=== PATIENT | female | born 1985 | race Native Hawaiian/Other Pacific Islander ===

== ENCOUNTER 2016-11-27 21:21 | Inpatient (IN) | payer MEDICAID ==
[2016-11-27] MEDS ORDERED: Iohexol 240 (50 ml) PO ONE (21:44)
[2016-11-27] MEDS ORDERED: Sterile Water 10 ML IV ONE (22:00)
[2016-11-27] MEDS ORDERED: Iohexol 240 (50 ml) ONE (22:00)
--- NOTE | 2016-11-27 22:37 | ED PDOC ---
HPI: Abdomen Time Seen by Provider: 11/27/16 21:34 Chief Complaint (Nursing): Abdominal Pain Chief Complaint (Provider): Abdominal Pain History Per: Patient History/Exam Limitations: no limitations Onset/Duration Of Symptoms: Other (3 months) Outside of [place] travel?: No Current Symptoms Are (Timing): Still Present Associated Symptoms: denies: Fever, Vomiting, Urinary Symptoms Additional Complaint(s): Rafaela Gunn, a 31 year old female, presents to the ED with abdominal pain she has had for the past 3 months. The patient states she was evaluated by Dr. Araya. He reports that she is currently on a H-pylori treatment and also on sucralfate. The patients states the medications have not helped. She reports that the pain is worse in the left flank and epigastric area and says that she feels as though her abdomen is becoming more and more distended. Denies fever, vomiting, urinary symptoms but does have normal stool. Abnormal Vaginal Bleeding: No Past Medical History Reviewed: Historical Data, Nursing Documentation, Vital Signs Vital Signs: Last Vital Signs Temp 98.0 F 11/27/16 21:27 Pulse 66 11/27/16 21:27 Resp 16 11/27/16 21:27 BP 103/63 11/27/16 21:27 Pulse Ox 99 11/27/16 22:50 - Medical History PMH: No Chronic Diseases - Family History Family History: States: Unknown Family Hx - Allergies Allergies/Adverse Reactions: Allergies Allergy/AdvReac Type Severity Reaction Status Date / Time No Known Allergies Allergy Verified 11/27/16 21:27 Review of Systems ROS Statement: Except As Marked, All Systems Reviewed And Found Negative Constitutional: Negative for: Fever Gastrointestinal: Positive for: Abdominal Pain. Negative for: Vomiting Genitourinary Female: Negative for: Dysuria, Frequency, Incontinence, Hematuria Physical Exam - Reviewed Nursing Documentation Reviewed: Yes Vital Signs Reviewed: Yes - Physical Exam Appears: Positive for: Non-toxic, No Acute Distress Head Exam: Positive for: ATRAUMATIC, NORMOCEPHALIC Skin: Positive for: Normal Color, Warm, Dry Eye Exam: Positive for: Normal appearance, EOMI, PERRL ENT: Positive for: Normal ENT Inspection Neck: Positive for: Normal, Painless ROM, Supple Cardiovascular/Chest: Positive for: Regular Rate, Rhythm, Chest Non Tender. Negative for: Tachycardia Respiratory: Positive for: Normal Breath Sounds. Negative for: Wheezing, Respiratory Distress Gastrointestinal/Abdominal: Positive for: Bowel Sounds, Soft, Tenderness (Left flank tenderness; epigastric tenderness;), Distended. Negative for: Guarding, Rebound Back: Positive for: Normal Inspection Extremity: Positive for: Normal ROM. Negative for: Tenderness, Pedal Edema, Deformity, Swelling Neurologic/Psych: Positive for: Alert, Oriented, Gait - Laboratory Results Result Diagrams: 11/27/16 22:40 11/27/16 22:40 - ECG O2 Sat by Pulse Oximetry: 99 (RA) Pulse Ox Interpretation: Normal Medical Decision Making Medical Decision Makin:34 initial Impression: 31 year old female presenting with Abdominal pain NOS Initial Plan: * CT Pelvis PO & IV contrast * CMP * Lipase * Upreg * Udip * CBC * Omnipaque 240 50ml PO * Protonix inJ 40mg IVP * Toradol 15mg IVP * Urine Culture * Urinalysis * Reevaluation IMPRESSION: No acute solid visceral abnormality; suboptimal positioning of IUD in the lower uterine segment and cervix; enteritis; nonobstructing small bowel intussusception in the left upper quadrant; constipation Additional findings as described above 130AM: Pt. seen and evaluated by operating room surgical technologist. Recommends medical admission with Joel as surgical consult. Scribe Attestation Documented by Deana Donato acting as a scribe for Sincere Perry MD. Provider Attestation All medical record entries made by the Scribe were at my direction and personally dictated by me. I have reviewed the chart and agree that the record accurately reflects my personal performance of the history, physical exam, medical decision making, and the department course for this patient. I have also personally directed, reviewed, and agree with the discharge instructions and disposition Disposition - Clinical Impression Clinical Impression: Intussusception - Patient ED Disposition Is Patient to be Admitted: No - Disposition Disposition Time: 01:30 Condition: STABLE
[2016-11-27 22:50] LABS: BASO % 0.5 % (0.0-2.0); EOS # 0.2 K/uL (0.0-0.7); EOS % 3.4 % (0.0-4.0); HEMATOCRIT 36.4 % (34.0-47.0); LYMPH # 2.3 K/uL (1.0-4.3); LYMPH % 44.4 % (20.0-40.0); MEAN CELL VOLUME 78.3 fl (81.0-99.0); MEAN CORPUSCULAR HEMOGLOBIN 24.5 pg (27.0-31.0); MEAN CORPUSCULAR HGB CONC 31.3 g/dL (33.0-37.0); MEAN PLATELET VOLUME 8.4 fl (7.2-11.7); MONO # 0.4 K/uL (0.0-0.8); MONO % 8.2 % (0.0-10.0); NEUT # 2.2 K/uL (1.8-7.0); NEUT % 43.5 % (50.0-75.0); NRBC % 0.1 % (0.0-0.0); WHITE BLOOD COUNT 5.1 K/uL (4.8-10.8)
[2016-11-27 22:53] LABS: RBC URINE 1 /hpf (0-3); URINE BILIRUBIN NEGATIVE (NEGATIVE); URINE BLOOD MODERATE (NEGATIVE); URINE COLOR YELLOW (YELLOW); URINE GLUCOSE (UA) NEG (Normal); URINE KETONE NEGATIVE (NEGATIVE); URINE LEUKOCYTE ESTERASE NEG Leu/uL (Negative); URINE PROTEIN NEGATIVE (NEGATIVE); URINE UROBILINOGEN 0.2-1.0 mg/dL (0.2-1.0); WBC URINE 2 /hpf (0-5)
[2016-11-27 23:00] LABS: ALB/GLOB RATIO 1.4 (1.0-2.1); ALKALINE PHOSPHATASE 37 U/L (38-126); ALT/SGPT 29 U/L (9-52); AST/SGOT 22 U/L (14-36); BILIRUBIN,TOTAL 0.1 mg/dl (0.2-1.3); BLOOD UREA NITROGEN 11 mg/dl (7-17); CALCIUM 9.1 mg/dL (8.4-10.2); CARBON DIOXIDE 26 mmol/L (22-30); CHLORIDE 105 mmol/L (98-107); GFR AFRICAN-AMERICAN > 60; GLUCOSE,RANDOM 96 mg/dL (65-105); LIPASE 92 U/L (23-300); POTASSIUM 3.6 MMOL/L (3.6-5.0); SODIUM 139 mmol/l (132-148); TOTAL PROTEIN 7.4 G/DL (6.3-8.2)
[2016-11-27] MEDS ORDERED: Iohexol 300 100 ML IJ ONE (23:38)
[2016-11-27] MEDS ORDERED: Sodium Chloride 0.9% 50 ML IV ONE (23:39)
--- NOTE | 2016-11-28 00:26 | CT ---
EXAM: CT Abdomen and Pelvis With Intravenous Contrast CLINICAL HISTORY: 31 years old, female; Pain; Abdominal pain; Localized; Left upper quadrant (luq); Prior surgery; Surgery date: 6+ months; Surgery type: ; Additional info: Diffuse abd pain, distension TECHNIQUE: Axial computed tomography images of the abdomen and pelvis with intravenous contrast. This CT exam was performed using one or more of the following dose reduction techniques: automated exposure control, adjustment of the mA and/or kV according to patient size, and/or use of iterative reconstruction technique. Coronal and sagittal reformatted images were created and reviewed. CONTRAST: 95 mL of administered intravenously. EXAM DATE/TIME: 11/27/2016 9:45 PM COMPARISON: There are no prior studies for comparison. FINDINGS: Lower thorax: Heart size is normal. There is minimal atelectasis/scarring at the lung bases. ABDOMEN: Liver: There is fatty infiltration of the liver. Gallbladder and bile ducts: unremarkable Pancreas: unremarkable Spleen: unremarkable Adrenals: unremarkable Kidneys and ureters: unremarkable Stomach and bowel: Stomach is distended with ingested material, contrast and air. Rotation is normal. Proximal and mid small bowel is mildly distended . There is mild fold thickening. There is a nonobstructing small bowel intussusception in the left upper quadrant. There is mild mid small bowel wall thickening. There is fecalization distal and terminal ileum. Appendix is unremarkable. There is a moderately large amount of stool in the right colon. Appendix: See stomach and bowel PELVIS: Bladder: unremarkable Reproductive: There is an IUD in the lower uterine segment and cervix. There is mild prominence of the adnexa. ABDOMEN and PELVIS: Intraperitoneal space: There is trace free fluid. There is no free air. Bones/joints: There are no acute osseous abnormalities Soft tissues: There is a small fat containing umbilical hernia. Vasculature: Vascular structures are unremarkable. Lymph nodes: There is shotty mesenteric adenopathy IMPRESSION: No acute solid visceral abnormality; suboptimal positioning of IUD in the lower uterine segment and cervix; enteritis; nonobstructing small bowel intussusception in the left upper quadrant; constipation Additional findings as described above.
[2016-11-28] MEDS ORDERED: Sodium Chloride 0.9% 1,000 ML IV STA (01:50)
--- NOTE | 2016-11-28 02:16 | CP.PCM.CON ---
History of Present Illness - History of Present Illness History of Present Illness: Surgery Consult: Dr. Chen Pt is a 31F with no significant PMHx who presents to [facility] with complaints of intermittent LUQ/left upper back abdominal pain x 3-4 months. Pt states she has been having on and off abdominal pain for the past few months which she describes as a twisting sensation that lasts a few minutes and resolves. She admits to several visits to [facility] for this pain for which she was sent home from the ER and was told to f/u with GI. She did follow up with GI, had an EGD in September and was started on triple therapy for H-pylori. Pt states her symptoms have not improved and she does not correlate her pain with food intake. She states her pain sometimes gets worse with deep breathing or certain positions. Denies F/C, N/V. She does admit to a hx of constipation for which she takes a laxative PRN. In the ER, pt had a CT abdomen/pelvis which shows non-obstructing intussusception in the LUQ. Surgery consulted to evaluate. Currently, pt is resting comfortably in bed. States her pain has improved slightly after getting the pain meds. Pt states her last BM was yesterday and it was normal. Admits to flatus. Denies other complaints at this time. PMHx: denies PSHx: x 3, tonsillectomy SocialHx: denies smoking, EtOH/drugs NKDA Review of Systems - Review of Systems All systems: reviewed and no additional remarkable complaints except (as per HPI ) Past Patient History - Past Medical History & Family History Past Medical History?: No Past Family History: Reviewed and not pertinent - Past Social History Smoking Status: Never Smoked - GASTROINTESTINAL Hx Gastritis: Yes - PSYCHIATRIC Hx Substance Use: No - SURGICAL HISTORY Hx Surgeries: Yes Hx Section: Yes Hx Eye Surgery: Yes - ANESTHESIA Hx Anesthesia: Yes Hx Anesthesia Reactions: No Meds Allergies/Adverse Reactions: Allergies Allergy/AdvReac Type Severity Reaction Status Date / Time No Known Allergies Allergy Verified 11/27/16 21:27 - Medications Medications: Current Medications Sodium Chloride (Sodium Chloride 0.9%) 1,000 mls @ 150 mls/hr IV .Q6H40M STA Stop: 11/28/16 08:29 Ketorolac Tromethamine (Toradol) 15 mg IVP Q6 PRN PRN Reason: Pain, moderate (4-7) Physical Exam - Constitutional Appears: Well, No Acute Distress - Head Exam Head Exam: ATRAUMATIC, NORMOCEPHALIC - ENT Exam ENT Exam: Mucous Membranes Moist - Respiratory Exam Respiratory Exam: NORMAL BREATHING PATTERN - Cardiovascular Exam Cardiovascular Exam: RRR - GI/Abdominal Exam GI & Abdominal Exam: Normal Bowel Sounds, Soft, Tenderness (LUQ ). absent: Distended, Guarding, Rebound - Rectal Exam Rectal Exam: Deferred - Extremities Exam Extremities exam: Negative for: tenderness - Neurological Exam Neurological exam: Alert, Oriented x3 - Skin Skin Exam: Dry, Intact, Warm Results - Vital Signs Recent Vital Signs: Last Vital Signs Temp 98.0 F 11/27/16 21:27 Pulse 66 11/27/16 21:27 Resp 16 11/27/16 21:27 BP 103/63 11/27/16 21:27 Pulse Ox 99 11/28/16 01:53 - Labs Result Diagrams: 11/27/16 22:40 11/27/16 22:40 Labs: Laboratory Results - last 24 hr 11/27/16 11/27/16 11/27/16 22:40 22:40 22:40 WBC 5.1 RBC 4.65 Hgb 11.4 L Hct 36.4 MCV 78.3 L MCH 24.5 L MCHC 31.3 L RDW 14.0 Plt Count 246 MPV 8.4 Neut % (Auto) 43.5 L Lymph % (Auto) 44.4 H [place] % (Auto) 8.2 Eos % (Auto) 3.4 Baso % (Auto) 0.5 Neut # 2.2 Lymph # 2.3 [place] # 0.4 Eos # 0.2 Baso # 0.0 Sodium 139 Potassium 3.6 Chloride 105 Carbon Dioxide 26 Anion Gap 12 BUN 11 Creatinine 0.6 L Est GFR ( Amer) > 60 Est GFR (Non-Af Amer) > 60 Random Glucose 96 Calcium 9.1 Total Bilirubin 0.1 L AST 22 ALT 29 Alkaline Phosphatase 37 L Total Protein 7.4 Albumin 4.3 Globulin 3.1 Albumin/Globulin Ratio 1.4 Lipase 92 Urine Color Yellow Urine Clarity Clear Urine pH 8.0 Ur Specific [place] 1.012 Urine Protein Negative Urine Glucose (UA) Neg Urine Ketones Negative Urine Blood Moderate Urine Nitrate Negative Urine Bilirubin Negative Urine Urobilinogen 0.2-1.0 Ur Leukocyte Esterase Neg Urine RBC (Auto) 1 Urine Microscopic WBC 2 Ur Squamous Epith Cells 2 - Imaging and Cardiology CT scan - abdomen Status: Image reviewed by me, Report reviewed by me Assessment & Plan - Assessment and Plan (Free Text) Assessment: 31F with non-obstructing intussusception as seen on CT Plan: - Keep NPO - IVF, pain management - serial abdominal exams - will d/w Dr. April Malik, PGY-2 Surgery
[2016-11-28 09:01] LABS: BASO % 0.8 % (0.0-2.0); EOS # 0.2 K/uL (0.0-0.7); EOS % 4.2 % (0.0-4.0); HEMATOCRIT 33.1 % (34.0-47.0); LYMPH # 1.9 K/uL (1.0-4.3); LYMPH % 46.3 % (20.0-40.0); MEAN CELL VOLUME 78.1 fl (81.0-99.0); MEAN CORPUSCULAR HEMOGLOBIN 25.3 pg (27.0-31.0); MEAN CORPUSCULAR HGB CONC 32.4 g/dL (33.0-37.0); MEAN PLATELET VOLUME 8.3 fl (7.2-11.7); MONO # 0.3 K/uL (0.0-0.8); MONO % 7.3 % (0.0-10.0); NEUT # 1.7 K/uL (1.8-7.0); NEUT % 41.4 % (50.0-75.0); NRBC % 0.1 % (0.0-0.0); WHITE BLOOD COUNT 4.2 K/uL (4.8-10.8)
[2016-11-28 09:19] LABS: BLOOD UREA NITROGEN 9 mg/dl (7-17); CALCIUM 8.3 mg/dL (8.4-10.2); CARBON DIOXIDE 26 mmol/L (22-30); CHLORIDE 106 mmol/L (98-107); GFR AFRICAN-AMERICAN > 60; GLUCOSE,RANDOM 90 mg/dL (65-105); POTASSIUM 3.5 MMOL/L (3.6-5.0); SODIUM 140 mmol/l (132-148)
[2016-11-28] MEDS ORDERED: Potassium Chloride 20 mEq ER Tab PO ONE (10:40)
[2016-11-28] MEDS: Pantoprazole 40 mg EC Tab PO SCH (11:40)
--- NOTE | 2016-11-28 12:56 | RAD ---
HISTORY: left lower chest pain COMPARISON: None available. TECHNIQUE: Chest PA and lateral FINDINGS: LUNGS: No focal consolidation. Please note that chest x-ray has limited sensitivity for the detection of pulmonary masses. PLEURA: No significant pleural effusion identified. No definite pneumothorax . CARDIOVASCULAR: The cardiomediastinal silhouette appears within normal limits of size. OSSEOUS STRUCTURES: No acute osseous abnormality identified. VISUALIZED UPPER ABDOMEN: Unremarkable. OTHER FINDINGS: None. IMPRESSION: No focal consolidation, significant pleural effusion, or definite pneumothorax identified.
--- NOTE | 2016-11-28 13:55 | CP.PCM.HP ---
<Daljit Clarke - Last Filed: 11/28/16 13:49> History of Present Illness - History of Present Illness History of Present Illness: 31 year old female with no significant PMHx presented to ED with intermittent LUQ abdominal pain x 3 months. Described as a twisting sensation that lasts a few minutes (up to 5 mins) and resolves, not correlated with food. Previous similar episodes evaluated at [facility] [place], discharged from ED to follow up with GI. Patient followed up with GI, had an EGD in September and was started on triple therapy for H-pylori though no improvement of symptoms. Patient states pain sometimes gets worse with deep breathing or certain positions. Denies fever, chills, nausea, vomiting, melena, brbpr, chest pain, or SOB. Patient had a CT abdomen/pelvis which showed non-obstructing intussusception in the LUQ. Patient was seen and evaluated with attending. Patient states pain improved though still present when she takes deep breaths. Denies other complaints at this time. No acute events overnight. Surgery evaluated patient. PMHx: denies Allergies: NKDA Meds: as per chart PSHx: x 3, tonsillectomy SocialHx: denies smoking, EtOH, drugs Present on Admission - Present on Admission Any Indicators Present on Admission: No Review of Systems - Review of Systems All systems: reviewed and no additional remarkable complaints except (mentioned in HPI) Past Patient History - Past Medical History & Family History Past Medical History?: No - Past Social History Smoking Status: Never Smoked - CARDIAC Hx Cardiac Disorders: No - PULMONARY Hx Respiratory Disorders: No - NEUROLOGICAL Hx Neurological Disorder: No - HEENT Hx HEENT Problems: No - RENAL Hx Chronic Kidney Disease: No - ENDOCRINE/METABOLIC Hx Endocrine Disorders: No - HEMATOLOGICAL/ONCOLOGICAL Hx AIDS: No Hx Human Immunodeficiency Virus (HIV): No - INTEGUMENTARY Hx Dermatological Problems: No - MUSCULOSKELETAL/RHEUMATOLOGICAL Hx Falls: No - GASTROINTESTINAL Hx Gastritis: Yes - GENITOURINARY/GYNECOLOGICAL Hx Genitourinary Disorders: No - PSYCHIATRIC Hx Psychophysiologic Disorder: No Hx Substance Use: No - SURGICAL HISTORY Hx Surgeries: Yes Hx Section: Yes (x 3) Hx Eye Surgery: Yes (left eye) - ANESTHESIA Hx Anesthesia: Yes Hx Anesthesia Reactions: No Meds Allergies/Adverse Reactions: Allergies Allergy/AdvReac Type Severity Reaction Status Date / Time No Known Allergies Allergy Verified 11/27/16 21:27 Physical Exam - Constitutional Appears: Well, Non-toxic, No Acute Distress - Head Exam Head Exam: ATRAUMATIC, NORMAL INSPECTION, NORMOCEPHALIC - Eye Exam Eye Exam: Normal appearance - Neck Exam Neck exam: Positive for: Normal Inspection - Respiratory Exam Respiratory Exam: Clear to Auscultation Bilateral, NORMAL BREATHING PATTERN - Cardiovascular Exam Cardiovascular Exam: REGULAR RHYTHM, RRR, +S1, +S2 - GI/Abdominal Exam GI & Abdominal Exam: Normal Bowel Sounds, Soft, Tenderness (mild LUQ/false ribs) - Extremities Exam Extremities exam: Positive for: normal inspection - Neurological Exam Neurological exam: Alert, Oriented x3 - Psychiatric Exam Psychiatric exam: Normal Affect, Normal Mood - Skin Skin Exam: Dry, Intact, Normal Color, Warm Results - Vital Signs Recent Vital Signs: Last Vital Signs Temp 98.3 F 11/28/16 09:00 Pulse 90 11/28/16 09:00 Resp 18 11/28/16 09:00 BP 98/65 L 11/28/16 09:00 Pulse Ox 100 11/28/16 09:00 - Labs Result Diagrams: 11/28/16 08:46 11/28/16 08:46 Labs: Laboratory Results - last 24 hr 11/28/16 11/28/16 08:46 08:46 WBC 4.2 L RBC 4.25 Hgb 10.7 L Hct 33.1 L MCV 78.1 L MCH 25.3 L MCHC 32.4 L RDW 14.0 Plt Count 223 MPV 8.3 Neut % (Auto) 41.4 L Lymph % (Auto) 46.3 H [place] % (Auto) 7.3 Eos % (Auto) 4.2 H Baso % (Auto) 0.8 Neut # 1.7 L Lymph # 1.9 [place] # 0.3 Eos # 0.2 Baso # 0.0 Sodium 140 Potassium 3.5 L Chloride 106 Carbon Dioxide 26 Anion Gap 12 BUN 9 Creatinine 0.6 L Est GFR ( Amer) > 60 Est GFR (Non-Af Amer) > 60 Random Glucose 90 Calcium 8.3 L Assessment & Plan (1) Intussusception Assessment and Plan: Surgery on board, appreciate recommendations Will obtain CXR to evaluate ribs NPO IVF Pain management Status: Acute <Chester,Andrea K - Last Filed: 11/30/16 07:31> Present on Admission - Present on Admission Any Indicators Present on Admission: No Results - Vital Signs Recent Vital Signs: Last Vital Signs Temp 98.5 F 11/30/16 07:28 Pulse 57 L 11/30/16 07:28 Resp 18 11/30/16 07:28 BP 111/74 11/30/16 07:28 Pulse Ox 99 11/30/16 07:28 - Labs Result Diagrams: 11/29/16 06:05 11/29/16 06:05
[2016-11-28] MEDS: Sodium Chloride 0.9% 1,000 ML IV SCH ×3 (16:33→23:22)
[2016-11-29] MEDS: Sodium Chloride 0.9% 1,000 ML IV SCH ×3 (04:10→13:49)
[2016-11-29 06:56] LABS: BASO % 0.5 % (0.0-2.0); EOS # 0.1 K/uL (0.0-0.7); EOS % 4.1 % (0.0-4.0); HEMATOCRIT 31.3 % (34.0-47.0); LYMPH # 1.8 K/uL (1.0-4.3); LYMPH % 51.4 % (20.0-40.0); MEAN CELL VOLUME 77.4 fl (81.0-99.0); MEAN CORPUSCULAR HEMOGLOBIN 25.4 pg (27.0-31.0); MEAN CORPUSCULAR HGB CONC 32.9 g/dL (33.0-37.0); MEAN PLATELET VOLUME 8.5 fl (7.2-11.7); MONO # 0.3 K/uL (0.0-0.8); MONO % 7.2 % (0.0-10.0); NEUT # 1.3 K/uL (1.8-7.0); NEUT % 36.8 % (50.0-75.0); NRBC % 0.3 % (0.0-0.0); RED CELL DISTRIBUTION WIDTH 13.8 % (11.5-14.5); WHITE BLOOD COUNT 3.5 K/uL (4.8-10.8)
[2016-11-29 07:03] LABS: ALB/GLOB RATIO 1.2 (1.0-2.1); ALKALINE PHOSPHATASE 35 U/L (38-126); ALT/SGPT 32 U/L (9-52); AST/SGOT 20 U/L (14-36); BILIRUBIN,TOTAL 0.2 mg/dl (0.2-1.3); BLOOD UREA NITROGEN 6 mg/dl (7-17); CALCIUM 7.9 mg/dL (8.4-10.2); CARBON DIOXIDE 24 mmol/L (22-30); CHLORIDE 108 mmol/L (98-107); GFR AFRICAN-AMERICAN > 60; GLUCOSE,RANDOM 82 mg/dL (65-105); POTASSIUM 3.7 MMOL/L (3.6-5.0); SODIUM 138 mmol/l (132-148); TOTAL PROTEIN 6.2 G/DL (6.3-8.2)
[2016-11-29] MEDS: Pantoprazole 40 mg EC Tab PO SCH (08:44)
--- NOTE | 2016-11-29 10:12 | RAD ---
HISTORY: Abdominal pain COMPARISON: Comparison made with CT scan abdomen and pelvis 11/28/2016 FINDINGS: BOWEL: Oral contrast material is seen opacifying the colon precluding complete obstruction. BONES: Osseous structures grossly intact. OTHER FINDINGS: In situ Copper-T IUD. IMPRESSION: No evidence of complete obstruction with oral contrast material opacifying the colon.
--- NOTE | 2016-11-29 10:57 | CP.PCM.PN ---
Subjective - Date & Time of Evaluation Date of Evaluation: 11/29/16 Time of Evaluation: 07:54 - Subjective Subjective: Patient seen and evaluated at bedside with attending. No acute events overnight. Left abdominal pain is still present, with relief with medications. No fever/chills. Surgery following. For Small Bowel Series today. No other complaints at this time. Objective - Vital Signs/Intake and Output Vital Signs (last 24 hours): Temp Pulse Resp BP Pulse Ox 98.1 F 64 18 110/76 100 11/29/16 08:22 11/29/16 08:22 11/29/16 08:22 11/29/16 08:22 11/29/16 08:22 - Medications Medications: Current Medications Sodium Chloride (Sodium Chloride 0.9%) 1,000 mls @ 150 mls/hr IV .Q6H40M [facility] Stop: 11/29/16 14:41 Last Admin: 11/29/16 04:56 Dose: 150 mls/hr Ketorolac Tromethamine (Toradol) 15 mg IVP Q6 PRN PRN Reason: Pain, moderate (4-7) Last Admin: 11/29/16 04:53 Dose: 15 mg Ondansetron HCl (Zofran Inj) 4 mg IVP Q6 PRN PRN Reason: Nausea/Vomiting Pantoprazole Sodium (Protonix Ec Tab) 40 mg PO DAILY [facility] Last Admin: 11/29/16 08:44 Dose: 40 mg - Labs Labs: 11/29/16 06:05 11/29/16 06:05 - Constitutional Appears: Well, Non-toxic, No Acute Distress - Head Exam Head Exam: ATRAUMATIC, NORMAL INSPECTION, NORMOCEPHALIC - Eye Exam Eye Exam: Normal appearance - Respiratory Exam Respiratory Exam: Clear to Ausculation Bilateral, NORMAL BREATHING PATTERN - Cardiovascular Exam Cardiovascular Exam: REGULAR RHYTHM, +S1, +S2. absent: Murmur - GI/Abdominal Exam GI & Abdominal Exam: Soft, Tenderness (luq), Normal Bowel Sounds - Extremities Exam Extremities Exam: Normal Inspection - Neurological Exam Neurological Exam: Alert, Awake, Oriented x3 - Psychiatric Exam Psychiatric exam: Normal Affect, Normal Mood - Skin Skin Exam: Dry, Intact, Normal Color, Warm Assessment and Plan (1) Intussusception Assessment & Plan: Labs/imaging reviewed Surgery on board, appreciate recommendations Small bowel series today advance diet as tolerated Pain management PRN Status: Acute
--- NOTE | 2016-11-29 11:07 | CP.PCM.PN ---
Subjective - Date & Time of Evaluation Date of Evaluation: 11/29/16 Time of Evaluation: 09:00 - Subjective Subjective: General Surgery progress note for Dr. Ceballos Pt s/e at bedside this AM. NAEO. Patient states that she still has mild pain in the LUQ but that she had a bowel movement this AM which was hard but non-bloody. Objective - Vital Signs/Intake and Output Vital Signs (last 24 hours): Temp Pulse Resp BP Pulse Ox 98.1 F 64 18 110/76 100 11/29/16 08:22 11/29/16 08:22 11/29/16 08:22 11/29/16 08:22 11/29/16 08:22 - Medications Medications: Current Medications Sodium Chloride (Sodium Chloride 0.9%) 1,000 mls @ 150 mls/hr IV .Q6H40M [facility] Stop: 11/29/16 14:41 Last Admin: 11/29/16 04:56 Dose: 150 mls/hr Ketorolac Tromethamine (Toradol) 15 mg IVP Q6 PRN PRN Reason: Pain, moderate (4-7) Last Admin: 11/29/16 04:53 Dose: 15 mg Ondansetron HCl (Zofran Inj) 4 mg IVP Q6 PRN PRN Reason: Nausea/Vomiting Pantoprazole Sodium (Protonix Ec Tab) 40 mg PO DAILY [facility] Last Admin: 11/29/16 08:44 Dose: 40 mg - Labs Labs: 11/29/16 06:05 11/29/16 06:05 - Constitutional Appears: Well, Non-toxic, No Acute Distress - Head Exam Head Exam: ATRAUMATIC, NORMOCEPHALIC - Eye Exam Eye Exam: Normal appearance. absent: Conjunctival injection, Scleral icterus - ENT Exam ENT Exam: Mucous Membranes Moist, Normal Oropharynx - Respiratory Exam Respiratory Exam: NORMAL BREATHING PATTERN. absent: Accessory Muscle Use, Respiratory Distress - GI/Abdominal Exam GI & Abdominal Exam: Soft, Tenderness (mild tenderness in the LUQ). absent: Distended - Extremities Exam Extremities Exam: absent: Calf Tenderness, Pedal Edema, Tenderness - Neurological Exam Neurological Exam: Alert, Awake, Oriented x3 - Psychiatric Exam Psychiatric exam: Normal Affect, Normal Mood - Skin Skin Exam: Dry, Intact, Normal Color, Warm Assessment and Plan - Assessment and Plan (Free Text) Assessment: 31F with chronic abdominal pain and non-obstructing intussusception as seen on CT Patient passed stool this AM Unable to perform obstructive small bowel series d/t contrast from previous CT scan yesterday--which is in the colon No leukocytosis Plan: - No plans for surgical intervention at this time. Patient is not in acute distress, abdominal exam is benign, and bowel is not obstructed. An outpatient small bowel series should be performed with follow up with Dr. Ceballos in her office for further evaluation/therapy planning - Regular diet - Patient is clear for discharge from a surgical standpoint with outpatient small bowel series and follow up with Dr. Ceballos - We will continue to follow patient until discharge Discussed with Dr. Tucker Asencio, PGY1
--- NOTE | 2016-11-29 13:56 | CP.PCM.CON ---
History of Present Illness - History of Present Illness History of Present Illness: GI consult requested by Dr Chester- This is a pt is a 31F with no significant PMHx who presents to [facility] with complaints of intermittent LUQ/left upper back abdominal pain x 3-4 months. Pt states she has been having on and off abdominal pain for the past few months which she describes as a twisting sensation that lasts a few minutes and resolves. She admits to several visits to [facility] [place] for this pain for which she was sent home from the ER and was told to f/u with GI. She did follow up with GI, had an EGD in September and was started on triple therapy for H-pylori. Pt states her symptoms have not improved and she does not correlate her pain with food intake. She states her pain sometimes gets worse with deep breathing or certain positions. Denies F/C, N/V. She does admit to a hx of constipation for which she takes a laxative PRN. In the ER, pt had a CT abdomen/pelvis which shows non-obstructing intussusception in the LUQ. Surgery consulted to evaluate. Currently, pt is resting comfortably in bed. States her pain has improved slightly after getting the pain meds. She admits to passing flatus and bowels. Denies other complaints at this time. Review of Systems - Review of Systems Review of Systems: 12 point ROS unremarkable except that documented on HPI Past Patient History - Past Medical History & Family History Past Medical History?: No - Past Social History Smoking Status: Never Smoked - CARDIAC Hx Cardiac Disorders: No - PULMONARY Hx Respiratory Disorders: No - NEUROLOGICAL Hx Neurological Disorder: No - HEENT Hx HEENT Problems: No - RENAL Hx Chronic Kidney Disease: No - ENDOCRINE/METABOLIC Hx Endocrine Disorders: No - HEMATOLOGICAL/ONCOLOGICAL Hx AIDS: No Hx Human Immunodeficiency Virus (HIV): No - INTEGUMENTARY Hx Dermatological Problems: No - MUSCULOSKELETAL/RHEUMATOLOGICAL Hx Falls: No - GASTROINTESTINAL Hx Gastritis: Yes - GENITOURINARY/GYNECOLOGICAL Hx Genitourinary Disorders: No - PSYCHIATRIC Hx Psychophysiologic Disorder: No Hx Substance Use: No - SURGICAL HISTORY Hx Surgeries: Yes Hx Section: Yes (x 3) Hx Eye Surgery: Yes (left eye) - ANESTHESIA Hx Anesthesia: Yes Hx Anesthesia Reactions: No Meds Allergies/Adverse Reactions: Allergies Allergy/AdvReac Type Severity Reaction Status Date / Time No Known Allergies Allergy Verified 11/27/16 21:27 - Medications Medications: Current Medications Sodium Chloride (Sodium Chloride 0.9%) 1,000 mls @ 150 mls/hr IV .Q6H40M [facility] Stop: 11/29/16 14:41 Last Admin: 11/29/16 04:56 Dose: 150 mls/hr Ketorolac Tromethamine (Toradol) 15 mg IVP Q6 PRN PRN Reason: Pain, moderate (4-7) Last Admin: 11/29/16 11:25 Dose: 15 mg Ondansetron HCl (Zofran Inj) 4 mg IVP Q6 PRN PRN Reason: Nausea/Vomiting Last Admin: 11/29/16 11:21 Dose: 4 mg Pantoprazole Sodium (Protonix Ec Tab) 40 mg PO DAILY [facility] Last Admin: 11/29/16 08:44 Dose: 40 mg Physical Exam - Constitutional Appears: Well - Head Exam Head Exam: ATRAUMATIC, NORMAL INSPECTION, NORMOCEPHALIC - Eye Exam Eye Exam: EOMI, Normal appearance, PERRL - ENT Exam ENT Exam: Mucous Membranes Dry - Neck Exam Neck exam: Positive for: Normal Inspection - Respiratory Exam Respiratory Exam: Clear to Auscultation Bilateral, NORMAL BREATHING PATTERN - Cardiovascular Exam Cardiovascular Exam: REGULAR RHYTHM, RRR, +S1, +S2 - GI/Abdominal Exam GI & Abdominal Exam: Distended, Normal Bowel Sounds, Soft. absent: Tenderness Additional comments: No guarding or rigidity - Extremities Exam Extremities exam: Positive for: normal inspection - Neurological Exam Neurological exam: Alert, CN II-XII Intact, Normal Gait, Oriented x3, Reflexes Normal - Psychiatric Exam Psychiatric exam: Normal Affect, Normal Mood - Skin Skin Exam: Dry, Intact, Normal Color, Warm Results - Vital Signs Recent Vital Signs: Last Vital Signs Temp 98.1 F 11/29/16 08:22 Pulse 66 11/29/16 11:36 Resp 20 11/29/16 11:36 BP 141/86 11/29/16 11:36 Pulse Ox 100 11/29/16 11:36 - Labs Result Diagrams: 11/29/16 06:05 11/29/16 06:05 Labs: Laboratory Results - last 24 hr 11/29/16 11/29/16 06:05 06:05 WBC 3.5 L RBC 4.05 Hgb 10.3 L Hct 31.3 L MCV 77.4 L MCH 25.4 L MCHC 32.9 L RDW 13.8 Plt Count 198 MPV 8.5 Neut % (Auto) 36.8 L Lymph % (Auto) 51.4 H [place] % (Auto) 7.2 Eos % (Auto) 4.1 H Baso % (Auto) 0.5 Neut # 1.3 L Lymph # 1.8 [place] # 0.3 Eos # 0.1 Baso # 0.0 Sodium 138 Potassium 3.7 Chloride 108 H Carbon Dioxide 24 Anion Gap 10 BUN 6 L Creatinine 0.6 L Est GFR ( Amer) > 60 Est GFR (Non-Af Amer) > 60 Random Glucose 82 Calcium 7.9 L Total Bilirubin 0.2 AST 20 ALT 32 Alkaline Phosphatase 35 L Total Protein 6.2 L Albumin 3.4 L D Globulin 2.8 Albumin/Globulin Ratio 1.2 Assessment & Plan - Assessment and Plan (Free Text) Assessment: 31 yr old F with previous admission for left lower abdominal pain shown to have non obstructive intussusception without obstructive symptoms. Surgical consult appreciated. EGD done two months ago revealed H pylori which was treated. Patient had one bout of vomiting today after eating soup. Diet as tolerated IVF Supplement electrolytes Upper Gi series Rest of plan as per surgery
[2016-11-30 01:12] VITALS: O2SAT 99
[2016-11-30 07:29] VITALS: BP 111/74; PULSE 57; RESP 18; TEMP 98.5
--- NOTE | 2016-11-30 08:22 | PN ---
DATE: 11/30/2016 SUBJECTIVE: The patient seen and examined. Interim events noted. Consults noted and appreciated. Gastroenterology and surgical followup and intervention noted and appreciated. The patient remains o n the regular medical floor, still complains of stomach discomfort, but is improving slowly. No ches t pain or shortness of breath. PHYSICAL EXAMINATION: GENERAL: The patient is in no acute distress. VITAL SIGNS: Stable. Temperature 98.3, pulse 76, respiration 20, blood pressure 101/65. HEART: S1, S2 normal, regular. LUNGS: Good bilateral air exchange. ABDOMEN: Soft, nontender. No organomegaly, no fluid. Bowel sounds are plus. The patient has some sensitivity in the left upper quadrant, but it is nothing acute. No guarding, no rigidity, no reboun d. Bowel sounds are plus and normal. EXTREMITIES: No edema, no calf swelling, no tenderness, no acute ischemia. CENTRAL NERVOUS SYSTEM: Essentially unchanged. DIAGNOSTIC DATA: Available diagnostic data reviewed. WBC 3.5, hemoglobin 10.3, hematocrit 31.8, trinidad telets 198. Sodium 138, potassium 3.7, chloride 103, bicarbonate 24, BUN 6, creatinine 0.6. SMA-12 is unremarkable, small bowel series is not done, did retain contrast from CT scan. Need for an d follow up as outpatient with consultants and primary care explained to patient. Patient understood the need for it. PLAN: We will discharge the patient home today. The patient will be followed up by consultants and primary care physician. Discharge plan discussed with patient. Andrea Chester MD cc: [id number] TT: 11/30/2016 08:21:48 Confirmation # [id number] Dictation # [id number] melly
--- NOTE | 2016-11-30 08:35 | OP ---
PROCEDURE DATE: 11/30/2016 SUBJECTIVE: This is a 31-year-old female without significant past medical history, was having abdomi nal pain on and off for which she had workup as outpatient and multiple Emergency Room visits, but didi reyes continued to have pain which got worse and was longest duration so far, so patient was brought to Emergency Room. CT scan showed possible nonobstructive small intestine intussusception, so edmund husain was admitted. Surgical consult and gastroenterological consult was done. Suggestions were followsamuel d. Small bowel series was attempted but due to retained contrast was not able to be completed. The patient was medically stable although had persistent left upper quadrant sensitivity. The patient wa s able to tolerate diet, was moving her bowels, and there was no acute problem. So, patient is being discharged today and patient will be followed up with medical physicians and solutions delivery consultant, and will ramírez ve small bowel series as outpatient, among other workup that is pending. Andrea Chester MD cc: [id number] TT: 11/30/2016 08:34:58 melly
--- NOTE | 2016-11-30 08:59 | CP.PCM.PN ---
Subjective - Date & Time of Evaluation Date of Evaluation: 11/30/16 Time of Evaluation: 08:00 - Subjective Subjective: patient seen at bedside. No overnight events. tolerated full regular diet. Denies nausea, vomiting, constipation or abdominal pain. Objective - Vital Signs/Intake and Output Vital Signs (last 24 hours): Temp Pulse Resp BP Pulse Ox 98.5 F 57 L 18 111/74 99 11/30/16 07:28 11/30/16 07:28 11/30/16 07:28 11/30/16 07:28 11/30/16 07:28 - Medications Medications: Current Medications Ketorolac Tromethamine (Toradol) 15 mg IVP Q6 PRN PRN Reason: Pain, moderate (4-7) Last Admin: 11/30/16 04:03 Dose: 15 mg Ondansetron HCl (Zofran Inj) 4 mg IVP Q6 PRN PRN Reason: Nausea/Vomiting Last Admin: 11/29/16 11:21 Dose: 4 mg Pantoprazole Sodium (Protonix Ec Tab) 40 mg PO DAILY [facility] Last Admin: 11/29/16 08:44 Dose: 40 mg - Labs Labs: 11/29/16 06:05 11/29/16 06:05 - Constitutional Appears: Well - Head Exam Head Exam: ATRAUMATIC, NORMAL INSPECTION, NORMOCEPHALIC - Eye Exam Eye Exam: EOMI, Normal appearance, PERRL - Respiratory Exam Respiratory Exam: Clear to Ausculation Bilateral, NORMAL BREATHING PATTERN - Cardiovascular Exam Cardiovascular Exam: REGULAR RHYTHM, +S1, +S2. absent: Murmur - GI/Abdominal Exam GI & Abdominal Exam: Distended, Soft, Normal Bowel Sounds. absent: Tenderness Additional comments: Normal bowel sounds - Neurological Exam Neurological Exam: Alert, Awake, CN II-XII Intact, Normal Gait, Oriented x3 - Psychiatric Exam Psychiatric exam: Normal Affect, Normal Mood - Skin Skin Exam: Dry, Intact, Normal Color, Warm Assessment and Plan - Assessment and Plan (Free Text) Assessment: 31 yr old F with previous admission for left lower abdominal pain shown to have non obstructive intussusception without obstructive symptoms. Surgical consult appreciated. EGD done two months ago revealed H pylori which was treated. No s/ s of bowel obstruction Plan: Diet as tolerated No Gi intervention necessary Should get outpatient colonoscopy Rest of plan as per surgery Thank you for letting us participate in the care of your patient
[2016-11-30] MEDS: Pantoprazole 40 mg EC Tab PO SCH (09:06)
[2016-11-30] MEDS ORDERED: Simethicone 80 mg Chewtab PO PRN (09:58)
--- NOTE | 2016-11-30 09:58 | CP.PCM.PN ---
Subjective - Date & Time of Evaluation Date of Evaluation: 11/30/16 Time of Evaluation: 07:45 - Subjective Subjective: General surgery progress note for Dr. Ceballos Pt s/e at bedside this AM. She is resting comfortably. Patient states that after a few bites of her regular diet at lunch yesterday she had one episode of vomiting. When she ate dinner, however, she did not have any nausea or vomiting. Patient did describe diffuse gas pains overnight, which improved after she passed gas. Patient denies a bowel movement Objective - Vital Signs/Intake and Output Vital Signs (last 24 hours): Temp Pulse Resp BP Pulse Ox 98.5 F 57 L 18 111/74 99 11/30/16 07:28 11/30/16 07:28 11/30/16 07:28 11/30/16 07:28 11/30/16 07:28 - Medications Medications: Current Medications Ketorolac Tromethamine (Toradol) 15 mg IVP Q6 PRN PRN Reason: Pain, moderate (4-7) Last Admin: 11/30/16 04:03 Dose: 15 mg Ondansetron HCl (Zofran Inj) 4 mg IVP Q6 PRN PRN Reason: Nausea/Vomiting Last Admin: 11/29/16 11:21 Dose: 4 mg Pantoprazole Sodium (Protonix Ec Tab) 40 mg PO DAILY [facility] Last Admin: 11/30/16 09:06 Dose: 40 mg - Labs Labs: 11/29/16 06:05 11/29/16 06:05 - Constitutional Appears: Well, Non-toxic, No Acute Distress - Head Exam Head Exam: ATRAUMATIC, NORMOCEPHALIC - Eye Exam Eye Exam: Normal appearance. absent: Conjunctival injection, Scleral icterus - ENT Exam ENT Exam: Mucous Membranes Moist, Normal Oropharynx - Respiratory Exam Respiratory Exam: NORMAL BREATHING PATTERN. absent: Accessory Muscle Use, Respiratory Distress - GI/Abdominal Exam GI & Abdominal Exam: Distended (mild distension), Soft, Tenderness (mild tenderness in the LUQ to palpation). absent: Guarding, Rebound - Extremities Exam Extremities Exam: absent: Calf Tenderness, Pedal Edema - Neurological Exam Neurological Exam: Alert, Awake, Oriented x3 - Psychiatric Exam Psychiatric exam: Normal Affect, Normal Mood - Skin Skin Exam: Dry, Intact, Normal Color, Warm Assessment and Plan - Assessment and Plan (Free Text) Assessment: 31F with chronic abdominal pain and non-obstructing intussusception as seen on CT Patient passing gas, tolerated regular diet for dinner with gas pains overnight Unable to perform obstructive small bowel series d/t contrast--in the colon from recent CT scan No leukocytosis Plan: - No plans for surgical intervention at this time. Monitor breakfast tolerance. If tolerated well, patient can be discharged with an outpatient small bowel series and follow up with Dr. Ceballos in her office for further evaluation/planning - Regular diet - Add simethicone to regimen - We will continue to follow patient until discharge Discussed with Dr. Tucker Asencio, PGY1
== END 2016-11-30 09:45 | disposition home or self-care (01) | DRG 181 ==
LOC: EDSEX 21:21 → H.ER 21:21 → EDBD 21:21 → H.ERHOLD 11-28 01:49 → H.MEDSURG1 11-28 02:50 → OBSVTOIN 11-28 14:41
PROVIDERS: ADMIT Internal Medicine; ATTEND Internal Medicine
DX: K56.1 Intussusception (principal)

== ENCOUNTER 2016-12-07 22:03 | Emergency (ER) | payer MEDICAID ==
[2016-12-07 22:42] VITALS: O2SAT 100
[2016-12-07] MEDS ORDERED: Sodium Chloride 0.9% 1,000 ML IV STA (23:03)
--- NOTE | 2016-12-07 23:09 | ED PDOC ---
HPI: Abdomen Time Seen by Provider: 12/07/16 22:54 Chief Complaint (Nursing): Abdominal Pain Chief Complaint (Provider): Abd pain History Per: Patient History/Exam Limitations: no limitations Onset/Duration Of Symptoms: Days (10) Current Symptoms Are (Timing): Still Present Additional Complaint(s): Pt. with abd pain. Ongoing, now more constant. Is diffuse with more on the left. No dysuria. Nausea, no vomit. No back pain. Not taking meds at home. Was admitted recently for intussusception. No surgery performed at that time. Pt. was to get outpt. obstructive series x-rays. Past Medical History Reviewed: Nursing Documentation, Vital Signs Vital Signs: Last Vital Signs Temp 98.3 F 12/07/16 22:40 Pulse 69 12/07/16 22:40 Resp 17 12/07/16 22:40 BP 103/73 12/07/16 22:40 Pulse Ox 100 12/08/16 00:00 - Medical History PMH: Gastritis Denies: HIV, Chronic Kidney Disease Other PMH: intussusception - Surgical History Surgical History: - Family History Family History: States: Unknown Family Hx - Living Arrangements Living Arrangements: With Family - Social History Current smoker - smoking cessation education provided: No Alcohol: None Drugs: Denies - Home Medications Home Medications: Ambulatory Orders Medication Instructions Recorded Pantoprazole [Protonix EC Tab] 40 mg PO DAILY 11/28/16 Sucralfate [Carafate] 1 gm PO BID 11/28/16 - Allergies Allergies/Adverse Reactions: Allergies Allergy/AdvReac Type Severity Reaction Status Date / Time No Known Allergies Allergy Verified 12/07/16 22:42 Review of Systems ROS Statement: Except As Marked, All Systems Reviewed And Found Negative Gastrointestinal: Positive for: Nausea, Abdominal Pain Physical Exam - Reviewed Nursing Documentation Reviewed: Yes Vital Signs Reviewed: Yes - Physical Exam Appears: Positive for: Non-toxic, No Acute Distress Head Exam: Positive for: ATRAUMATIC, NORMAL INSPECTION, NORMOCEPHALIC Skin: Positive for: Normal Color, Warm, DRY Eye Exam: Positive for: EOMI, Normal appearance, PERRL ENT: Positive for: Normal ENT Inspection Neck: Positive for: Normal, Painless ROM Cardiovascular/Chest: Positive for: Regular Rate, Rhythm Respiratory: Positive for: CNT, Normal Breath Sounds Gastrointestinal/Abdominal: Positive for: Bowel Sounds, Soft, Tenderness ( diffuse). Negative for: Distended, Guarding Back: Positive for: Normal Inspection. Negative for: L CVA Tenderness, R CVA Tenderness Extremity: Positive for: Normal ROM. Negative for: Tenderness, Pedal Edema Neurologic/Psych: Positive for: Alert, Oriented - Laboratory Results Result Diagrams: 12/07/16 22:00 12/07/16 22:00 - ECG O2 Sat by Pulse Oximetry: 100 Pulse Ox Interpretation: Normal - Progress ED Course And Treament: 1110: Per rectords, pt. dx with intussusception. Was to fu outpt to get obstructive series. Dr. Ceballos following pt. 1202: Spoke with Dr. Ceballos. Would like secured entrance monitor surgeon to be called for any issues with case. Pt. is a service case. Will get Ct as pt. in pain and obstructive series with no gross findings. Dr. Taylor to fu on Ct. Disposition - Clinical Impression Clinical Impression: Abdominal pain - Patient ED Disposition Is Patient to be Admitted: Transfer of Care - Disposition Disposition: Transfer of Care Disposition Time: 00:04 Condition: STABLE Patient Signed Over To: Gloria Taylor
[2016-12-07 23:39] LABS: BASO % 0.9 % (0.0-2.0); EOS # 0.2 K/uL (0.0-0.7); EOS % 3.2 % (0.0-4.0); HEMATOCRIT 35.2 % (34.0-47.0); LYMPH # 2.3 K/uL (1.0-4.3); LYMPH % 46.8 % (20.0-40.0); MEAN CELL VOLUME 78.6 fl (81.0-99.0); MEAN CORPUSCULAR HEMOGLOBIN 25.5 pg (27.0-31.0); MEAN CORPUSCULAR HGB CONC 32.5 g/dL (33.0-37.0); MEAN PLATELET VOLUME 8.8 fl (7.2-11.7); MONO # 0.4 K/uL (0.0-0.8); MONO % 7.1 % (0.0-10.0); NEUT # 2.1 K/uL (1.8-7.0); NRBC % 0.1 % (0.0-0.0); RED CELL DISTRIBUTION WIDTH 13.9 % (11.5-14.5)
[2016-12-07 23:44] LABS: ALB/GLOB RATIO 1.4 (1.0-2.1); ALKALINE PHOSPHATASE 40 U/L (38-126); ALT/SGPT 36 U/L (9-52); AST/SGOT 33 U/L (14-36); BILIRUBIN,TOTAL 0.2 mg/dl (0.2-1.3); BLOOD UREA NITROGEN 16 mg/dl (7-17); CALCIUM 9.6 mg/dL (8.4-10.2); CARBON DIOXIDE 27 mmol/L (22-30); CHLORIDE 102 mmol/L (98-107); GFR AFRICAN-AMERICAN > 60; GLUCOSE,RANDOM 96 mg/dL (65-105); POTASSIUM 3.9 MMOL/L (3.6-5.0); SODIUM 138 mmol/l (132-148); TOTAL PROTEIN 7.7 G/DL (6.3-8.2)
[2016-12-08] MEDS ORDERED: Iohexol 240 (50 ml) PO ONE (00:01)
--- NOTE | 2016-12-08 00:23 | ED PDOC ---
"- Laboratory Results Result Diagrams: 12/07/16 22:00 12/07/16 22:00 - ECG O2 Sat by Pulse Oximetry: 100 (RA) Pulse Ox Interpretation: Normal Medical Decision Making Medical Decision Making: Time: 0000 Initial impression: Abdominal Pain Initial plan: --0000: Transfer of Care from Dr. Asher Pending CT Abdomen FINDINGS: Lower thorax: Minimal atelectasis. ABDOMEN: Liver: Unremarkable. No mass. Gallbladder and bile ducts: No calcified stones. No ductal dilation. Pancreas: No ductal dilation. No mass. Spleen: No splenomegaly. Adrenals: No mass. Kidneys and ureters: No mass. No hydronephrosis. Stomach and bowel: No definite mural thickening. No obstruction. Appendix: Normal caliber. No inflammation. PELVIS: Bladder: Unremarkable. Reproductive: IUD within lower uterine segment/cervix. 1.7 x 1.7 x 1.5 cm hypodense lesion within LEFT ovary. ABDOMEN and PELVIS: Intraperitoneal space: Trace free fluid within pelvis. No free air. KERRY ELIAS | Final Radiology Report CONFIDENTIALITY STATEMENT This report is intended only for use by the referring physician, and only in accordance with law. If you received this in error, call [phone]. Page 2 of 2 Bones/joints: No acute fracture. Soft tissues: Tiny umbilical hernia containing fat. Vasculature: Unremarkable. No aneurysm. Lymph nodes: No pathologically enlarged lymph nodes. IMPRESSION: 1. Probable LEFT ovarian cyst. Consider ultrasound. 2. Malpositioned IUD. Clinical correlation is needed. 3. Incidental/non-acute findings are described above. --Reassess 05 Ordered, reviewed, and independently interpreted the Ultrasound EXAM: US Pelvis, Transvaginal CLINICAL HISTORY: 31 years old, female; Pain; Other: Left pelvic pain TECHNIQUE: Real-time transvaginal pelvic ultrasound (complete) with image documentation. Transvaginal imaging was used for better evaluation of the endometrium and adnexa. COMPARISON: CT - ABD PELVIS PO IV CONTRAST 12/08/2016 2:30:12 AM FINDINGS: Uterus/cervix: Uterus measures 8.0 x 4.1 x 5.3 cm in size. No myometrial mass. Endometrium: 0.4 cm in thickness. IUD within lower uterine segment/cervix. Right ovary: 3.3 x 1.8 x 3.5 cm in size. No mass. Small follicles. Normal flow. Left ovary: 3.6 x 2.4 x 3.1 cm in size. 1.8 x 1.9 x 1.6 cm anechoic lesion. Small follicles. Normal flow. Free fluid: Trace free fluid within pelvis. Bladder: Empty bladder which cannot be evaluated with this probe. IMPRESSION: 1. LEFT ovarian cyst. 2. Malposition IUD. 3. Incidental/non-acute findings are described above. Thank you for allowing us to participate in the care of your patient. Scribe Attestation: Documented by Beena Mcintosh, acting as a scribe for Gloria Taylor MD MD Scribe Attestation: All medical record entries made by the Scribe were at my direction and personally dictated by me. I have reviewed the chart and agree that the record accurately reflects my personal performance of the history, physical exam, medical decision making, and the department course for this patient. I have also personally directed, reviewed, and agree with the discharge instructions and disposition. Disposition Doctor Will See Patient In The: Office Counseled Patient/Family Regarding: Studies Performed, Diagnosis, Need For Followup - Clinical Impression Clinical Impression: Abdominal pain, Ovarian cyst - POA Present On Arrival: None - Disposition Referrals: Santa Jordan MD [Family Provider] - Disposition: Routine/Home Disposition Time: 05:00 Condition: GOOD Additional Instructions: Follow up with your PCP in 2-3 days. Prescriptions: Famotidine [Pepcid] 20 mg PO DAILY #14 tab Ibuprofen [Motrin] 600 mg PO Q6 PRN #20 tab PRN Reason: Pain, Moderate (4-7) Instructions: Ovarian Cyst (ED)"
[2016-12-08] MEDS ORDERED: Iohexol 300 100 ML IJ ONE (02:06)
[2016-12-08] MEDS ORDERED: Sodium Chloride 0.9% 50 ML IV ONE (02:06)
--- NOTE | 2016-12-08 03:02 | CT ---
EXAM: CT Abdomen and Pelvis With Intravenous Contrast CLINICAL HISTORY: 31 years old, female; Pain; Abdominal pain; Generalized; Additional info: Abd pain TECHNIQUE: Axial computed tomography images of the abdomen and pelvis with intravenous contrast. This CT exam was performed using one or more of the following dose reduction techniques: automated exposure control, adjustment of the mA and/or kV according to patient size, and/or use of iterative reconstruction technique. Coronal and sagittal reformatted images were created and reviewed. CONTRAST: 95 mL of [id number] administered intravenously. COMPARISON: CT - ABD PELVIS PO IV CON 11/27/2016 11:47:37 PM FINDINGS: Lower thorax: Minimal atelectasis. ABDOMEN: Liver: Unremarkable. No mass. Gallbladder and bile ducts: No calcified stones. No ductal dilation. Pancreas: No ductal dilation. No mass. Spleen: No splenomegaly. Adrenals: No mass. Kidneys and ureters: No mass. No hydronephrosis. Stomach and bowel: No definite mural thickening. No obstruction. Appendix: Normal caliber. No inflammation. PELVIS: Bladder: Unremarkable. Reproductive: IUD within lower uterine segment/cervix. 1.7 x 1.7 x 1.5 cm hypodense lesion within LEFT ovary. ABDOMEN and PELVIS: Intraperitoneal space: Trace free fluid within pelvis. No free air. Bones/joints: No acute fracture. Soft tissues: Tiny umbilical hernia containing fat. Vasculature: Unremarkable. No aneurysm. Lymph nodes: No pathologically enlarged lymph nodes. IMPRESSION: 1. Probable LEFT ovarian cyst. Consider ultrasound. 2. Malpositioned IUD. Clinical correlation is needed. 3. Incidental/non-acute findings are described above.
--- NOTE | 2016-12-08 05:16 | US ---
EXAM: US Pelvis, Transvaginal CLINICAL HISTORY: 31 years old, female; Pain; Other: Left pelvic pain TECHNIQUE: Real-time transvaginal pelvic ultrasound (complete) with image documentation. Transvaginal imaging was used for better evaluation of the endometrium and adnexa. COMPARISON: CT - ABD PELVIS PO IV CONTRAST 12/08/2016 2:30:12 AM FINDINGS: Uterus/cervix: Uterus measures 8.0 x 4.1 x 5.3 cm in size. No myometrial mass. Endometrium: 0.4 cm in thickness. IUD within lower uterine segment/cervix. Right ovary: 3.3 x 1.8 x 3.5 cm in size. No mass. Small follicles. Normal flow. Left ovary: 3.6 x 2.4 x 3.1 cm in size. 1.8 x 1.9 x 1.6 cm anechoic lesion. Small follicles. Normal flow. Free fluid: Trace free fluid within pelvis. Bladder: Empty bladder which cannot be evaluated with this probe. IMPRESSION: 1. LEFT ovarian cyst. 2. Malposition IUD. 3. Incidental/non-acute findings are described above.
[2016-12-08 05:30] VITALS: BP 116/82; PULSE 76; RESP 16; TEMP 97.5
--- NOTE | 2016-12-08 11:02 | RAD ---
PROCEDURE: Radiographs of the chest and abdomen (obstructive series) HISTORY: pain COMPARISON: Comparison made with abdominal radiographs 11/29/2016 and chest radiograph 11/28/2016. TECHNIQUE: AP radiograph of the chest, with upright and supine radiographs of the abdomen. FINDINGS: CHEST: Lungs: Clear. Cardiovascular: Normal size heart. No pulmonary vascular congestion. Pleura: No pleural fluid. No pneumothorax. Other findings: None. ABDOMEN AND PELVIS: Bowel: Unremarkable bowel gas pattern. No evidence of mechanical obstruction. Moderate amount of stool seen within the cecum and ascending colon suggesting mild fecal retention. Free air: None. Bones: Unremarkable. Other findings: In situ Copper-T IUD. IMPRESSION: Unremarkable radiographs of chest. . No evidence of mechanical bowel obstruction. Free In situ Copper-T IUD.
== END 2016-12-08 05:30 | disposition home or self-care (01) ==
LOC: H.ER 22:03
DX: N83.202 Unspecified ovarian cyst, left side (principal); R10.2 Pelvic and perineal pain

== ENCOUNTER 2017-01-13 09:58 | Inpatient (IN) | payer MEDICAID ==
[2017-01-13 10:04] VITALS: BMI 29.2
[2017-01-13] MEDS ORDERED: Iohexol 240 (50 ml) PO ONE (10:30)
--- NOTE | 2017-01-13 10:39 | ED PDOC ---
HPI: Abdomen Time Seen by Provider: 01/13/17 10:22 Chief Complaint (Nursing): Abdominal Pain History Per: Patient History/Exam Limitations: no limitations Onset/Duration Of Symptoms: Gradual (since yesterday similar to intussusception in the past) Current Symptoms Are (Timing): Still Present Severity: Moderate Location Of Pain/Discomfort: RLQ, LUQ Quality Of Discomfort: Dull, Aching Associated Symptoms: Nausea, Vomiting. denies: Fever, Chills, Chest Pain, Constipation, Urinary Symptoms Exacerbating Factors: None Alleviating Factors: None Past Medical History Reviewed: Historical Data, Nursing Documentation, Vital Signs Vital Signs: Last Vital Signs Temp 98 F 01/13/17 17:11 Pulse 66 01/13/17 17:11 Resp 14 01/13/17 17:11 BP 101/61 01/13/17 17:11 Pulse Ox 100 01/13/17 17:11 - Medical History PMH: Gastritis Denies: HIV, Chronic Kidney Disease - Surgical History Surgical History: - Family History Family History: States: Unknown Family Hx - Living Arrangements Living Arrangements: With Family - Social History Current smoker - smoking cessation education provided: No - Home Medications Home Medications: Ambulatory Orders Medication Instructions Recorded No Known Home Med 01/13/17 - Allergies Allergies/Adverse Reactions: Allergies Allergy/AdvReac Type Severity Reaction Status Date / Time No Known Allergies Allergy Verified 01/13/17 17:14 Review of Systems ROS Statement: Except As Marked, All Systems Reviewed And Found Negative Constitutional: Negative for: Fever, Chills Cardiovascular: Negative for: Chest Pain, Palpitations Respiratory: Positive for: Cough, Shortness of Breath Gastrointestinal: Positive for: Nausea, Vomiting, Abdominal Pain, Diarrhea. Negative for: Melena, Hematochezia, Hematemesis Genitourinary Female: Positive for: Dysuria. Negative for: Vaginal Discharge, Vaginal Bleeding Skin: Negative for: Rash Neurological: Negative for: Weakness, Numbness Physical Exam - Reviewed Nursing Documentation Reviewed: Yes Vital Signs Reviewed: Yes - Physical Exam Appears: Positive for: Uncomfortable Head Exam: Positive for: ATRAUMATIC, NORMAL INSPECTION, NORMOCEPHALIC Eye Exam: Positive for: Normal appearance, EOMI, PERRL Neck: Positive for: Normal, Painless ROM, Supple Cardiovascular/Chest: Positive for: Regular Rate, Rhythm, Chest Non Tender. Negative for: Edema, Gallop, Murmur, Bradycardia, Tachycardia Respiratory: Positive for: Normal Breath Sounds. Negative for: Decreased Breath Sounds, Accessory Muscle Use, Crackles, Rales, Rhonchi, Stridor, Wheezing Gastrointestinal/Abdominal: Positive for: Normal Exam, Bowel Sounds, Soft, Tenderness (diffuse) Back: Positive for: Normal Inspection. Negative for: L CVA Tenderness, R CVA Tenderness Extremity: Positive for: Normal ROM. Negative for: Tenderness, Pedal Edema Neurologic/Psych: Positive for: Alert, front end developer II-XII, Oriented, Mood/Affect ( anxious). Negative for: Motor/Sensory Deficits - Laboratory Results Result Diagrams: 01/13/17 10:20 01/13/17 14:28 - ECG O2 Sat by Pulse Oximetry: 100 Pulse Ox Interpretation: Normal - Progress ED Course And Treament: 12[address] pt drinking comfortably. awaiting ct scan [address] can report 1530 ct scan with ileus given pt pain and h/o of intussusception per Dr nguyen will admit for ileus partial sbo, pt agree's with plan. Re-evaluation Time: 15:00 Condition: Improved Disposition - Clinical Impression Clinical Impression: Ileus - Patient ED Disposition Is Patient to be Admitted: Yes Counseled Patient/Family Regarding: Studies Performed, Diagnosis, Need For Followup - Disposition Disposition Time: 15:00 Condition: STABLE - Pt Status Changed To: Hospital Disposition Of: Observation - POA Present On Arrival: None
[2017-01-13] MEDS ORDERED: Iohexol 240 (50 ml) ONE (10:40)
[2017-01-13] MEDS ORDERED: Sodium Chloride 0.9% 1,000 ML IV ONE (10:41)
[2017-01-13 10:50] LABS: BASO % 0.8 % (0.0-2.0); EOS # 0.2 K/uL (0.0-0.7); EOS % 3.3 % (0.0-4.0); HEMATOCRIT 37.2 % (34.0-47.0); LYMPH # 1.9 K/uL (1.0-4.3); MEAN CELL VOLUME 77.5 fl (81.0-99.0); MEAN CORPUSCULAR HEMOGLOBIN 25.2 pg (27.0-31.0); MEAN CORPUSCULAR HGB CONC 32.5 g/dL (33.0-37.0); MEAN PLATELET VOLUME 8.4 fl (7.2-11.7); MONO # 0.3 K/uL (0.0-0.8); MONO % 6.7 % (0.0-10.0); NEUT # 2.3 K/uL (1.8-7.0); NEUT % 49.2 % (50.0-75.0); NRBC % 0.1 % (0.0-0.0); RED CELL DISTRIBUTION WIDTH 14.4 % (11.5-14.5); WHITE BLOOD COUNT 4.6 K/uL (4.8-10.8)
[2017-01-13 10:53] LABS: RBC URINE 3 /hpf (0-3); URINE BACTERIA RARE (<OCC); URINE BILIRUBIN NEGATIVE (NEGATIVE); URINE COLOR YELLOW (YELLOW); URINE GLUCOSE (UA) NEG (Normal); URINE KETONE NEGATIVE (NEGATIVE); URINE LEUKOCYTE ESTERASE NEG Leu/uL (Negative); URINE PROTEIN NEGATIVE (NEGATIVE); URINE UROBILINOGEN 0.2-1.0 mg/dL (0.2-1.0); WBC URINE 1 /hpf (0-5)
[2017-01-13 10:54] LABS: URINE BLOOD TRACE (NEGATIVE)
[2017-01-13 10:55] LABS: ALB/GLOB RATIO 1.3 (1.0-2.1); ALKALINE PHOSPHATASE 50 U/L (38-126); ALT/SGPT 31 U/L (9-52); AMYLASE 134 U/L (30-110); AST/SGOT 66 U/L (14-36); BILIRUBIN,TOTAL 1.4 mg/dl (0.2-1.3); BLOOD UREA NITROGEN 14 mg/dl (7-17); CALCIUM 9.2 mg/dL (8.4-10.2); CARBON DIOXIDE 24 mmol/L (22-30); CHLORIDE 103 mmol/L (98-107); GFR AFRICAN-AMERICAN > 60; GLUCOSE,RANDOM 90 mg/dL (65-105); LIPASE 146 U/L (23-300); SODIUM 136 mmol/l (132-148); TOTAL PROTEIN 8.6 G/DL (6.3-8.2)
[2017-01-13 11:02] LABS: POTASSIUM 5.7 MMOL/L (3.6-5.0)
[2017-01-13] MEDS ORDERED: Iohexol 300 100 ML IJ ONE (13:25)
[2017-01-13] MEDS ORDERED: Sodium Chloride 0.9% 50 ML IV ONE (13:25)
--- NOTE | 2017-01-13 14:35 | CT ---
PROCEDURE: CT Abdomen and Pelvis with contrast HISTORY: abd pain r/o intussusception COMPARISON: None. TECHNIQUE: Contrast dose: 100 cc of Omnipaque 300 Radiation dose: Total exam DLP = 802 mGy-cm. This CT exam was performed using one or more of the following dose reduction techniques: Automated exposure control, adjustment of the mA and/or kV according to patient size, and/or use of iterative reconstruction technique. FINDINGS: LOWER THORAX: Unremarkable. LIVER: Unremarkable. No gross lesion or ductal dilatation. GALLBLADDER AND BILE DUCTS: Unremarkable. PANCREAS: Unremarkable. No gross lesion or ductal dilatation. SPLEEN: Unremarkable. ADRENALS: Unremarkable. No mass. KIDNEYS AND URETERS: Unremarkable. No hydronephrosis. No solid mass. VASCULATURE: Unremarkable. No aortic aneurysm. BOWEL: Mild small bowel ileus in the left upper quadrant. No evidence of intussusception.. No obstruction. No gross mural thickening. APPENDIX: Normal appendix. PERITONEUM: Unremarkable. No free fluid. No free air. LYMPH NODES: Unremarkable. No enlarged lymph nodes. BLADDER: Unremarkable. REPRODUCTIVE: Intrauterine device. Involuting right ovarian cyst.. BONES: No acute fracture. OTHER FINDINGS: None. IMPRESSION: Mild left upper quadrant small bowel ileus. No intussusception.
[2017-01-13 14:46] LABS: BLOOD UREA NITROGEN 10 mg/dl (7-17); CALCIUM 8.9 mg/dL (8.4-10.2); CARBON DIOXIDE 26 mmol/L (22-30); CHLORIDE 104 mmol/L (98-107); GFR AFRICAN-AMERICAN > 60; GLUCOSE,RANDOM 83 mg/dL (65-105); POTASSIUM 4.3 MMOL/L (3.6-5.0); SODIUM 138 mmol/l (132-148)
[2017-01-13] MEDS ORDERED: Morphine 4 MG/ML VIAL IVP STA (15:16)
[2017-01-13] MEDS: Morphine 4 MG/ML VIAL IVP PRN (22:13)
[2017-01-13] MEDS: Sodium Chloride 0.9% 1,000 ML IV SCH (22:14)
[2017-01-13] MEDS: Ciprofloxacin 400mg/200ml D5W 400 MG/200 ML BAG IVPB SCH (22:21)
--- NOTE | 2017-01-14 02:22 | CP.PCM.CON ---
<German Mojica - Last Filed: 01/14/17 02:26> History of Present Illness - History of Present Illness History of Present Illness: 31F with no significant PMHx who presented to the ED with complaints of intermittent LUQ abdominal pain since Saturday. Pt states she has been having cramping abdominal pain that waxes and wanes. Patient reports poor appetite due to the pain. She also reports having bad episodes of GERD. Patient denies taking any over the counter medications. However, patient states the cramping pain she experiences in her LUQ is different from the acid reflux pain. Patient mentioned she had some bread on Saturday and shortly after became bloated and had a bout of non-bloody emesis. She reports having multiples bouts of diarrhea on Saturday. Currently patient denies passing any flatus and reports some nausea. Currently denies chest pain/SOB, fever/chills, dysuria. PMHx: denies PSHx: x 3, tonsillectomy SocialHx: denies smoking, EtOH/drugs NKDA Review of Systems - Review of Systems Review of Systems: 12 pt ROS carried out, unremarkable, except as stated in HPI Past Patient History - Infectious Disease Hx of Infectious Diseases: None - Past Medical History & Family History Past Medical History?: Yes - Past Social History Smoking Status: Never Smoked - CARDIAC Hx Cardiac Disorders: No - PULMONARY Hx Respiratory Disorders: No - NEUROLOGICAL Hx Neurological Disorder: No - HEENT Hx HEENT Problems: No - RENAL Hx Chronic Kidney Disease: No - ENDOCRINE/METABOLIC Hx Endocrine Disorders: No - HEMATOLOGICAL/ONCOLOGICAL Hx Blood Disorders: No Hx Human Immunodeficiency Virus (HIV): No - INTEGUMENTARY Hx Dermatological Problems: No - MUSCULOSKELETAL/RHEUMATOLOGICAL Hx Musculoskeletal Disorders: No Hx Falls: No - GASTROINTESTINAL Hx Gastrointestinal Disorders: Yes Hx Gastritis: Yes - GENITOURINARY/GYNECOLOGICAL Hx Genitourinary Disorders: No - PSYCHIATRIC Hx Psychophysiologic Disorder: No Hx Substance Use: No - SURGICAL HISTORY Hx Surgeries: Yes Hx Section: Yes (x 3) Hx Eye Surgery: Yes (left eye) - ANESTHESIA Hx Anesthesia: Yes Hx Anesthesia Reactions: Yes (Nausea/Vomting) Meds Allergies/Adverse Reactions: Allergies Allergy/AdvReac Type Severity Reaction Status Date / Time No Known Allergies Allergy Verified 01/13/17 17:14 - Medications Medications: Current Medications Ciprofloxacin (Cipro 400mg/200ml Dsw) 400 mg in 200 mls @ 200 mls/hr IVPB Q12 [facility] Last Admin: 01/13/17 22:21 Dose: 200 mls/hr Sodium Chloride (Sodium Chloride 0.9%) 1,000 mls @ 100 mls/hr IV .Q10H [facility] Stop: 01/14/17 21:28 Last Admin: 01/13/17 22:14 Dose: 100 mls/hr Morphine Sulfate (Morphine) 2 mg IVP Q6 PRN PRN Reason: Pain, severe (8-10) Last Admin: 01/13/17 22:13 Dose: 2 mg Ondansetron HCl (Zofran Inj) 4 mg IVP Q8 PRN PRN Reason: Nausea/Vomiting Last Admin: 01/13/17 23:20 Dose: 4 mg Physical Exam - Constitutional Appears: No Acute Distress - Head Exam Head Exam: NORMOCEPHALIC - Eye Exam Eye Exam: Normal appearance - ENT Exam ENT Exam: Mucous Membranes Moist - Respiratory Exam Respiratory Exam: NORMAL BREATHING PATTERN - Cardiovascular Exam Cardiovascular Exam: +S1, +S2 - GI/Abdominal Exam GI & Abdominal Exam: Soft, Tenderness. absent: Distended, Firm, Guarding, Rigid Additional comments: LUQ tender to palpation - Extremities Exam Extremities exam: Negative for: calf tenderness - Neurological Exam Neurological exam: Alert, Oriented x3 - Psychiatric Exam Psychiatric exam: Normal Mood - Skin Skin Exam: Normal Color, Warm Results - Vital Signs Recent Vital Signs: Last Vital Signs Temp 97.9 F 01/14/17 00:48 Pulse 66 01/14/17 00:48 Resp 20 01/14/17 00:48 BP 95/66 L 01/14/17 00:48 Pulse Ox 98 01/14/17 00:48 - Labs Result Diagrams: 01/13/17 10:20 01/13/17 14:28 Labs: Laboratory Results - last 24 hr 01/13/17 14:28 Sodium 138 Potassium 4.3 Chloride 104 Carbon Dioxide 26 Anion Gap 13 BUN 10 Creatinine 0.6 L Est GFR ( Amer) > 60 Est GFR (Non-Af Amer) > 60 Random Glucose 83 Calcium 8.9 - Imaging and Cardiology CT scan - abdomen Status: Image reviewed by me, Report reviewed by me Assessment & Plan - Assessment and Plan (Free Text) Assessment: 31F w/ complaints of LUQ abdominal pain with CT findings equivalent to LUQ small bowel ileus w/ no sign of intussusception -NPO -Bowel rest -Abx -Serial abd exams -Analgesics/Anti-emetics -F/u AM labs -DVT/GI ppx -Further recs per Dr. Chen <Jassi Chen - Last Filed: 01/15/17 20:09> Results - Vital Signs Recent Vital Signs: Last Vital Signs Temp 98.1 F 01/15/17 08:00 Pulse 67 01/15/17 08:00 Resp 18 01/15/17 08:00 BP 91/64 L 01/15/17 08:00 Pulse Ox 99 01/15/17 08:00 - Labs Result Diagrams: 01/14/17 06:15 01/14/17 06:15 Attending/Attestation - Attestation I have personally seen and examined this patient.: Yes I have fully participated in the care of the patient.: Yes I have reviewed all pertinent clinical information: Yes Notes (Text): 01/15/17 20:09 Pt was seen and examined at bedside on 01/14/17 Agree with above note and assessment Pt with Enteritis CT scan and Labs reviewed Clear liquid diet GI consult IV antibiotics Plan d.w pt in detail. Risk and benefit explained in detail.
[2017-01-14 07:12] LABS: HEMATOCRIT 33.7 % (34.0-47.0); MEAN CELL VOLUME 76.6 fl (81.0-99.0); MEAN CORPUSCULAR HEMOGLOBIN 25.2 pg (27.0-31.0); MEAN CORPUSCULAR HGB CONC 32.9 g/dL (33.0-37.0); RED CELL DISTRIBUTION WIDTH 14.3 % (11.5-14.5); WHITE BLOOD COUNT 4.5 K/uL (4.8-10.8)
[2017-01-14 07:22] LABS: ALB/GLOB RATIO 1.3 (1.0-2.1); ALKALINE PHOSPHATASE 40 U/L (38-126); ALT/SGPT 40 U/L (9-52); AST/SGOT 31 U/L (14-36); BILIRUBIN,TOTAL 0.4 mg/dl (0.2-1.3); BLOOD UREA NITROGEN 11 mg/dl (7-17); CALCIUM 8.6 mg/dL (8.4-10.2); CARBON DIOXIDE 27 mmol/L (22-30); CHLORIDE 104 mmol/L (98-107); GFR AFRICAN-AMERICAN > 60; GLUCOSE,RANDOM 88 mg/dL (65-105); POTASSIUM 4.3 MMOL/L (3.6-5.0); SODIUM 138 mmol/l (132-148); TOTAL PROTEIN 6.7 G/DL (6.3-8.2)
[2017-01-14 07:42] VITALS: RESP 18
[2017-01-14] MEDS: Morphine 4 MG/ML VIAL IVP PRN (07:46)
[2017-01-14] MEDS: Sodium Chloride 0.9% 1,000 ML IV SCH (08:53)
[2017-01-14] MEDS: Ciprofloxacin 400mg/200ml D5W 400 MG/200 ML BAG IVPB SCH ×2 (08:57→20:44)
--- NOTE | 2017-01-14 15:06 | CARD ---
APPROVED REPORT EKG Measurement Heart [id number] <Conclusion> Normal sinus rhythm Normal ECG
[2017-01-14] MEDS: Dextrose 5%/0.9% NS 1,000 ML IV SCH (15:15)
--- NOTE | 2017-01-14 16:58 | HP ---
CHIEF COMPLIANT: Abdominal pain, nausea, vomiting, and diarrhea. HISTORY OF PRESENT ILLNESS: This is a 31-year-old female with history of intestinal intussusception in the past year, who started having similar abdominal pain, now associated with nausea, vomiting, and diarrhea, and was intense in the quality than previous episodes. The patient was brought to the emergency room and was admitted for further management. REVIEW OF SYSTEMS: Positive for abdominal pain, nausea, vomiting, and diarrhea. Review of systems is otherwise negative for headache, dizziness, syncope, loss of consciousness, chest pain, shortness of breath, or any knee joint or extremity pain. Review of systems of all other organ systems is unremarkable. PAST MEDICAL HISTORY: Significant for intestinal intussusception and gastritis. PAST SURGICAL HISTORY: Remarkable for section. PERSONAL HISTORY: The patient is currently nonsmoker, nondrinker. No substance abuse. MEDICATIONS: The patient is not on any chronic medication at home. ALLERGIES: THE PATIENT IS NOT ALLERGIC TO ANY MEDICATION. FAMILY HISTORY: Noncontributory. PHYSICAL EXAMINATION: GENERAL: Well-developed, well-nourished, 31-year-old female, in no acute distress. VITAL SIGNS: Temperature afebrile 98.8, pulse 73, respirations 18, blood pressure 92/62. HEENT: Pupils reacting to light. No nystagmus. Normocephalic and atraumatic skull. NECK: No JVD. No thyromegaly. No lymphadenopathy. HEART: S1 and S2, normal and regular. No significant murmur, gallop, or rub is heard. LUNGS: Shows good bilateral air exchange. No rales or rhonchi. ABDOMEN: Soft, nontender, no organomegaly. No fluid. Bowel sounds are present. There is minimal tenderness in lower quadrants, but no sign of acute abdomen. No guarding, no rigidity, no rebound. Bowel sounds are plus. EXTREMITIES: No edema. No calf swelling or tenderness. No acute ischemia. CENTRAL NERVOUS SYSTEM: The patient is alert, awake, oriented x3. There is no sign of any acute gross focal, motor or sensory neurological deficit. DIAGNOSTIC DATA: Available diagnostic data reviewed. WBC 4.5, hemoglobin 11.1, hematocrit 33.7, and platelets 223. Sodium 138, potassium 4.6, chloride 104, bicarbonate 27, BUN 11, and creatinine 0.7. SMA-12 is unremarkable. Urinalysis is negative. Abdominal CAT scan shows ileus. EKG shows normal sinus rhythm without any acute ST-T changes. Surgical consult noted and appreciated. ADMITTING IMPRESSION: Abdominal ileus, partial intestinal intussusception, history of intussusception. PLAN: As ordered. Case and plan discussed with the patient. Andrea Chester MD
[2017-01-15 00:39] VITALS: TEMP 98.1; O2SAT 99
[2017-01-15] MEDS: Dextrose 5%/0.9% NS 1,000 ML IV SCH ×3 (01:00→14:37)
[2017-01-15] MEDS: Morphine 4 MG/ML VIAL IVP PRN (04:35)
--- NOTE | 2017-01-15 07:30 | CP.PCM.PN ---
Subjective - Date & Time of Evaluation Date of Evaluation: 01/15/17 Time of Evaluation: 07:27 - Subjective Subjective: General surgery - Dr. Chen Pt S&E. ANANYA. Pt complains of mild abdominal pain and nausea. She states her symptoms are relatively unchanged. She is tolerating liquid diet with no vomiting. She denies any F/C, Sob/Cp. Objective - Vital Signs/Intake and Output Vital Signs (last 24 hours): Temp Pulse Resp BP Pulse Ox 98.1 F 95 H 18 92/60 L 99 01/15/17 00:39 01/15/17 00:39 01/15/17 00:39 01/15/17 00:39 01/15/17 00:39 - Medications Medications: Current Medications Ciprofloxacin (Cipro 400mg/200ml Dsw) 400 mg in 200 mls @ 200 mls/hr IVPB Q12 [facility] Last Admin: 01/14/17 20:44 Dose: 200 mls/hr Dextrose/Sodium Chloride (Dextrose 5%/0.9% Ns 1000 Ml) 1,000 mls @ 100 mls/hr IV .Q10H [facility] Stop: 01/15/17 15:02 Last Admin: 01/15/17 04:31 Dose: 100 mls/hr Morphine Sulfate (Morphine) 2 mg IVP Q6 PRN PRN Reason: Pain, severe (8-10) Last Admin: 01/15/17 04:35 Dose: 2 mg Ondansetron HCl (Zofran Inj) 4 mg IVP Q8 PRN PRN Reason: Nausea/Vomiting Last Admin: 01/14/17 08:53 Dose: 4 mg Pantoprazole Sodium (Protonix Inj) 40 mg IVP DAILY [facility] Last Admin: 01/14/17 09:00 Dose: 40 mg - Constitutional Appears: No Acute Distress - Head Exam Head Exam: ATRAUMATIC, NORMAL INSPECTION, NORMOCEPHALIC - Eye Exam Eye Exam: Normal appearance - Respiratory Exam Respiratory Exam: NORMAL BREATHING PATTERN. absent: Respiratory Distress - Cardiovascular Exam Cardiovascular Exam: REGULAR RHYTHM - GI/Abdominal Exam GI & Abdominal Exam: Distended (mild), Soft, Tenderness (mild ttp , mostly LUQ) . absent: Firm, Guarding, Rigid, Rebound - Neurological Exam Neurological Exam: Alert, Oriented x3 - Skin Skin Exam: Dry, Intact Assessment and Plan - Assessment and Plan (Free Text) Assessment: 31F w/ persistent LUQ pain and Nausea, CT findings suggestive of ileus -Continue Clear liquid diet -F/U GI Recc. -Anti-emetics and analgesics PRN -No plans for surgical intervention at this time -Will DW Dr. Katherine Faustin PGY3
--- NOTE | 2017-01-15 07:57 | CP.PCM.CON ---
<Christoph Whitney - Last Filed: 01/15/17 13:41> History of Present Illness - History of Present Illness History of Present Illness: PGY5 GI Fellow Consult Note Patient is a 31yo female with PMHx significant for small bowel intussusception in November 2016, constipation, H pylori gastritis who presents to the hospital with abdominal pain. The patient has had multiple admissions for the same at both our facility and [facility]. She admits to intermittent LUQ abdominal pain which lasts anywhere from 5-10 minutes at a time and subsequently improves. She denies any associated nausea, vomiting with these episodes. Yesterday, pain lasted for over 1 hour so she came to the ED for evaluation. She admits to passing stool daily without issue but occasionally has to push/strain. Has used Miralax previously without improvement and stopped using this. On Omeprazole daily since diagnosed with HP gastritis in September and was treated with triple therapy at that time, again without relief. She had intusssusception in November which was treated conservatively. Denies improvement in symptoms with stooling and does not take any pain medications/laxatives regularly. At present, symptoms resolved and she is tolerating liquid diet without issue. PMHx: See HPI PSHx: x 3 FHx: Discussed with patient and denies any significant family history Social: Denies tobacco, EtOH or illicit drug use Endo: September 2016 - H pylori gastritis 12 system ROS performed and negative except where stated above Past Patient History - Infectious Disease Hx of Infectious Diseases: None - Past Medical History & Family History Past Medical History?: Yes - Past Social History Smoking Status: Never Smoked - CARDIAC Hx Cardiac Disorders: No - PULMONARY Hx Respiratory Disorders: No - NEUROLOGICAL Hx Neurological Disorder: No - HEENT Hx HEENT Problems: No - RENAL Hx Chronic Kidney Disease: No - ENDOCRINE/METABOLIC Hx Endocrine Disorders: No - HEMATOLOGICAL/ONCOLOGICAL Hx Blood Disorders: No Hx Human Immunodeficiency Virus (HIV): No - INTEGUMENTARY Hx Dermatological Problems: No - MUSCULOSKELETAL/RHEUMATOLOGICAL Hx Musculoskeletal Disorders: No Hx Falls: No - GASTROINTESTINAL Hx Gastrointestinal Disorders: Yes Hx Gastritis: Yes - GENITOURINARY/GYNECOLOGICAL Hx Genitourinary Disorders: No - PSYCHIATRIC Hx Psychophysiologic Disorder: No Hx Substance Use: No - SURGICAL HISTORY Hx Surgeries: Yes Hx Section: Yes (x 3) Hx Eye Surgery: Yes (left eye) - ANESTHESIA Hx Anesthesia: Yes Hx Anesthesia Reactions: Yes (Nausea/Vomting) Meds Allergies/Adverse Reactions: Allergies Allergy/AdvReac Type Severity Reaction Status Date / Time No Known Allergies Allergy Verified 01/13/17 17:14 - Medications Medications: Current Medications Ciprofloxacin (Cipro 400mg/200ml Dsw) 400 mg in 200 mls @ 200 mls/hr IVPB Q12 [facility] Last Admin: 01/14/17 20:44 Dose: 200 mls/hr Dextrose/Sodium Chloride (Dextrose 5%/0.9% Ns 1000 Ml) 1,000 mls @ 100 mls/hr IV .Q10H [facility] Stop: 01/15/17 15:02 Last Admin: 01/15/17 04:31 Dose: 100 mls/hr Morphine Sulfate (Morphine) 2 mg IVP Q6 PRN PRN Reason: Pain, severe (8-10) Last Admin: 01/15/17 04:35 Dose: 2 mg Ondansetron HCl (Zofran Inj) 4 mg IVP Q8 PRN PRN Reason: Nausea/Vomiting Last Admin: 01/14/17 08:53 Dose: 4 mg Pantoprazole Sodium (Protonix Inj) 40 mg IVP DAILY [facility] Last Admin: 01/14/17 09:00 Dose: 40 mg Physical Exam - Constitutional Appears: Non-toxic, No Acute Distress - Eye Exam Eye Exam: EOMI, PERRL - ENT Exam ENT Exam: Mucous Membranes Moist - Respiratory Exam Respiratory Exam: Clear to Auscultation Bilateral. absent: Rales, Rhonchi, Wheezes - Cardiovascular Exam Cardiovascular Exam: RRR, +S1, +S2 - GI/Abdominal Exam GI & Abdominal Exam: Normal Bowel Sounds, Soft, Tenderness (LUQ, RLQ). absent: Distended, Firm, Guarding, Rigid - Extremities Exam Extremities exam: Positive for: normal inspection. Negative for: pedal edema - Neurological Exam Neurological exam: Alert, Oriented x3 - Psychiatric Exam Psychiatric exam: Normal Affect, Normal Mood - Skin Skin Exam: Dry, Warm Results - Vital Signs Recent Vital Signs: Last Vital Signs Temp 98.1 F 01/15/17 00:39 Pulse 95 H 01/15/17 00:39 Resp 18 01/15/17 00:39 BP 92/60 L 01/15/17 00:39 Pulse Ox 99 01/15/17 00:39 - Labs Result Diagrams: 01/14/17 06:15 01/14/17 06:15 Assessment & Plan - Assessment and Plan (Free Text) Assessment: Patient is a 31yo female with PMHx significant for small bowel intussusception in November 2016, constipation, H pylori gastritis who presents to the hospital with abdominal pain -REcurrent abdominal pain -Recent h/o intussusception -H/O H pylori gastritis Plan: -CT A/P with PO/IV reviewed; abnormal segment of small bowel in LUQ noted -Conservative management for now with supportive care -Liquid diet, slowly advance as tolerating -Avoid opiates -Add Miralax 17g PO QD as moderate right-sided constipation noted on CT -Mild elevation in T bili noted, resolved -May ultimately benefit from push enteroscopy and colonoscopy evaluation as outpatient -Encourage follow up as patient did not follow up previously -OK for D/C from GI standpoint if tolerating diet and pain resolved as it has at present - Date & Time Date: 01/15/17 Time: 07:45 <Eh Ferreira MD - Last Filed: 01/16/17 12:15> Results - Vital Signs Recent Vital Signs: Last Vital Signs Temp 98.1 F 01/15/17 08:00 Pulse 67 01/15/17 08:00 Resp 18 01/15/17 08:00 BP 91/64 L 01/15/17 08:00 Pulse Ox 99 01/15/17 08:00 - Labs Result Diagrams: 01/14/17 06:15 01/14/17 06:15 Attending/Attestation - Attestation I have personally seen and examined this patient.: Yes I have fully participated in the care of the patient.: Yes I have reviewed all pertinent clinical information: Yes Notes (Text): 01/16/17 12:12 Patient seenw ith GI fellow - well known to me from past admission. This is a 31 yr old female with PMHx significant for small bowel intussusception in November 2016, constipation, H pylori gastritis s/p two week Rx who presents to the hospital with abdominal pain and imaging showing abnormal segment of small bowel in LUQ. Passing flatus, moving bowels and able to tolerate solid food without obstructive symptoms. Will dischareg with outpatient follow up in two weeks at my office for outpatient push enteroscopy and colonoscopy
[2017-01-15 08:01] VITALS: BP 91/64; PULSE 67
[2017-01-15] MEDS: Ciprofloxacin 400mg/200ml D5W 400 MG/200 ML BAG IVPB SCH (08:13)
[2017-01-15] MEDS ORDERED: POLYETHYLENE GLYCOL 3350 17 GM/Dose PACKET PO SCH (13:45)
== END 2017-01-15 14:58 | disposition home or self-care (01) | DRG 181 ==
LOC: H.ER 09:58 → H.ERHOLD 11:15 → H.EROBSV 15:14 → H.ERHOLD 17:06 → H.MEDSURG1 20:30 → OBSVTOIN 01-14 15:02 → MERGE 01-14 15:02
PROVIDERS: ADMIT Internal Medicine; ATTEND Internal Medicine
DX: K56.7 Ileus, unspecified (principal); K21.9 Gastro-esophageal reflux disease without esophagitis; K29.70 Gastritis, unspecified, without bleeding; K52.9 Noninfective gastroenteritis and colitis, unspecified; K59.00 Constipation, unspecified

== ENCOUNTER 2017-02-26 07:18 | Day surgery (SDC) | payer MEDICAID ==
[2017-01-31 14:53] VITALS: BMI 29.2
[2017-02-26] MEDS ORDERED: Lactated Ringer's 500 ML IV ONE (07:53)
[2017-02-26] MEDS ORDERED: Propofol 10 mg/ml Inj (20 ML) ONE (08:37)
[2017-02-26 09:58] VITALS: TEMP 97
[2017-02-26 10:11] VITALS: BP 103/69; PULSE 75; RESP 17; O2SAT 99
== END 2017-02-26 11:00 | disposition home or self-care (01) ==
LOC: H.ENDO 07:18
PROVIDERS: ATTEND Internal Medicine Gastroenterology
DX: K56.60 Unspecified intestinal obstruction (principal); R10.30 Lower abdominal pain, unspecified; K64.0 First degree hemorrhoids; K21.9 Gastro-esophageal reflux disease without esophagitis; K31.9 Disease of stomach and duodenum, unspecified; R10.84 Generalized abdominal pain
CPT/HCPCS: 44361; 45378; 88305; J2001; J2704; J3010; J7120

== ENCOUNTER 2017-08-13 23:12 | Inpatient (IN) | payer MEDICAID ==
[2017-08-13 23:12] VITALS: BMI 29.2
[2017-08-13] MEDS ORDERED: Sodium Chloride 0.9% 1,000 ML IV STA (23:51)
[2017-08-13] MEDS ORDERED: Iohexol 240 (50 ml) PO ONE (23:51)
--- NOTE | 2017-08-13 23:55 | ED PDOC ---
HPI: Abdomen Time Seen by Provider: 08/13/17 23:19 Chief Complaint (Nursing): Abdominal Pain Chief Complaint (Provider): abdominal pain History Per: Patient History/Exam Limitations: no limitations Onset/Duration Of Symptoms: Days (3) Current Symptoms Are (Timing): Still Present Location Of Pain/Discomfort: LUQ, LLQ Additional Complaint(s): 32 y/o female presents with left-sided abdominal pain x 3 days. Patient states she always has pain on this side, has been to ED two times within 7 months for same; was found to have intussusception, celiac artery stenosis (for which she saw a vascular surgeon who cleared her, stating no relation to pain), and left ovarian cyst (for which she followed up with her Catalyst Operator Chief who said cyst was stable), but states pain has become more intensified in the last 3 days. Denies fever, nausea/vomiting, chest pain, shortness of breath, changes in bowel movements, urinary symptoms. Past Medical History Reviewed: Historical Data, Nursing Documentation, Vital Signs Vital Signs: Last Vital Signs Temp 98.0 F 08/13/17 23:18 Pulse 77 08/13/17 23:18 Resp 16 08/13/17 23:18 BP 102/70 08/13/17 23:18 Pulse Ox 98 08/14/17 03:15 - Medical History PMH: Gastritis Denies: HIV, Chronic Kidney Disease - Surgical History Surgical History: Tonsillectomy, (x3) - Family History Family History: States: Unknown Family Hx - Immunization History Hx Tetanus Toxoid Vaccination: No Hx Influenza Vaccination: No Hx Pneumococcal Vaccination: No - Home Medications Home Medications: Ambulatory Orders Medication Instructions Recorded Ibuprofen [Motrin] 600 mg PO TID 7 Days tab 03/27/17 - Allergies Allergies/Adverse Reactions: Allergies Allergy/AdvReac Type Severity Reaction Status Date / Time No Known Allergies Allergy Verified 08/13/17 23:18 Review of Systems ROS Statement: Except As Marked, All Systems Reviewed And Found Negative Gastrointestinal: Positive for: Abdominal Pain Physical Exam - Reviewed Nursing Documentation Reviewed: Yes Vital Signs Reviewed: Yes - Physical Exam Appears: Positive for: Well, Non-toxic, No Acute Distress Head Exam: Positive for: ATRAUMATIC, NORMAL INSPECTION, NORMOCEPHALIC Skin: Positive for: Normal Color Eye Exam: Positive for: Normal appearance ENT: Positive for: Normal ENT Inspection Cardiovascular/Chest: Positive for: Regular Rate, Rhythm Respiratory: Positive for: Normal Breath Sounds Gastrointestinal/Abdominal: Positive for: Bowel Sounds, Soft, Tenderness (LUQ, left flank, left paraumbilical) Back: Positive for: Normal Inspection Extremity: Positive for: Normal ROM Neurologic/Psych: Positive for: Alert, Oriented - Laboratory Results Result Diagrams: 08/13/17 00:16 08/13/17 00:16 - ECG ECG: Positive for: Viewed By Me (reviewed by ED attending) ECG Rhythm: Positive for: Sinus Rhythm O2 Sat by Pulse Oximetry: 98 - Radiology X-Ray: Viewed By Me X-Ray Interpretation: No Acute Disease - Progress ED Course And Treament: labs, urine, CT abd/pelvis, IV toradol EXAM: CT Abdomen and Pelvis With Intravenous Contrast CLINICAL HISTORY: 32 years old, female; Pain; Abdominal pain; Localized; Left; Prior surgery; Surgery date: 6+ months; Surgery type: Appendectomy. C-sections x 3; Additional info: Left-sided abd pain TECHNIQUE: Axial computed tomography images of the abdomen and pelvis with intravenous contrast. All CT scans at this facility use one or more dose reduction techniques, viz.: automated exposure control; ma/kV adjustment per patient size (including targeted exams where dose is matched to indication; i.e. head); or iterative reconstruction technique. Coronal and sagittal reformatted images were created and reviewed. CONTRAST: 90 mL of [id number] administered intravenously. COMPARISON: CT - ANGIO ABDOMEN PELVIS W/CONT 2017-03-27 09:17 FINDINGS: Lower thorax: Minimal atelectasis. ABDOMEN: Liver: Mild fatty infiltration. Gallbladder and bile ducts: No calcified stones. No ductal dilation. Pancreas: No ductal dilation. No mass. Spleen: No splenomegaly. Adrenals: No mass. Kidneys and ureters: No mass. No hydronephrosis. Stomach and bowel: Mild small bowel intussusception within left abdomen. Few additional minimal small bowel intussusceptions within left abdomen. No definite mural thickening. No obstruction. Appendix: Appendectomy. PELVIS: Bladder: Unremarkable. Reproductive: Apparent 1.7 x 1.3 x 1.6 cm faint peripherally enhancing hypodensity with crenulated margins within left ovary. Obliquely oriented IUD within lower uterine segment, grossly stable. ABDOMEN and PELVIS: Intraperitoneal space: Trace free fluid within pelvis. No free air. Bones/joints: No acute fracture. Soft tissues: Tiny umbilical hernia containing fat. Vasculature: Unremarkable. No aneurysm. Lymph nodes: No pathologically enlarged lymph nodes. IMPRESSION: 1. Small bowel intussusceptions. 2. Probable involuting or ruptured left ovarian follicle/cyst. 3. Malpositioned IUD, stable. 4. Incidental/non-acute findings are described above. Case discussed with Dr. Candelario, nursing surgical services director on-call, will evaluate patient Dr. Voss discussed case with Dr. Ceballos, Surgeon on-call, will admit to her service. Disposition - Clinical Impression Clinical Impression: Intussusception - Disposition Disposition Time: 03:14 Condition: FAIR
[2017-08-14 00:26] LABS: VENOUS BLOOD GAS PCO2 49 mmHg (40-60); VENOUS BLOOD GAS PO2 29 mm/Hg (30-55); VENOUS BLOOD PH 7.38 (7.32-7.43)
[2017-08-14 00:29] LABS: BASO # 0.1 K/uL (0.0-0.2); EOS # 0.2 K/uL (0.0-0.7); EOS % 4.5 % (0.0-4.0); HEMOGLOBIN 11.5 g/dL (12.0-16.0); LYMPH # 2.3 K/uL (1.0-4.3); LYMPH % 41.1 % (20.0-40.0); MEAN CELL VOLUME 77.3 fl (81.0-99.0); MEAN CORPUSCULAR HEMOGLOBIN 25.4 pg (27.0-31.0); MEAN CORPUSCULAR HGB CONC 32.8 g/dL (33.0-37.0); MEAN PLATELET VOLUME 8.3 fl (7.2-11.7); MONO # 0.4 K/uL (0.0-0.8); MONO % 7.2 % (0.0-10.0); NEUT # 2.5 K/uL (1.8-7.0); NEUT % 46.2 % (50.0-75.0); NRBC % 0.2 % (0.0-0.0); RBC 4.53 Mil/uL (3.80-5.20); RED CELL DISTRIBUTION WIDTH 14.5 % (11.5-14.5); WHITE BLOOD COUNT 5.5 K/uL (4.8-10.8)
[2017-08-14] MEDS ORDERED: Iohexol 240 (50 ml) ONE (00:29)
[2017-08-14 00:37] LABS: ALB/GLOB RATIO 1.3 (1.0-2.1); ALBUMIN 4.1 g/dL (3.5-5.0); ALT/SGPT 29 U/L (9-52); AST/SGOT 20 U/L (14-36); BLOOD UREA NITROGEN 15 mg/dl (7-17); CALCIUM 9.5 mg/dL (8.4-10.2); GFR AFRICAN-AMERICAN > 60; GFR NON-AFRICAN AMERICAN > 60
[2017-08-14 00:45] LABS: SQUAMOUS EPITHIAL 2 /hpf (0-5); URINE BILIRUBIN NEGATIVE (NEGATIVE); URINE BLOOD SMALL (NEGATIVE); URINE CLARITY CLEAR (Clear); URINE COLOR STRAW (YELLOW); URINE GLUCOSE (UA) NEG (Normal); URINE LEUKOCYTE ESTERASE NEG Leu/uL (Negative); URINE NITRATE NEGATIVE (NEGATIVE); URINE PROTEIN NEGATIVE (NEGATIVE); URINE UROBILINOGEN 0.2-1.0 mg/dL (0.2-1.0)
[2017-08-14] MEDS ORDERED: Iohexol 300 100 ML IJ ONE (01:58)
[2017-08-14] MEDS ORDERED: Sodium Chloride 0.9% 100 ML ONE (01:58)
--- NOTE | 2017-08-14 02:41 | CT ---
EXAM: CT Abdomen and Pelvis With Intravenous Contrast CLINICAL HISTORY: 32 years old, female; Pain; Abdominal pain; Localized; Left; Prior surgery; Surgery date: 6+ months; Surgery type: Appendectomy. C-sections x 3; Additional info: Left-sided abd pain TECHNIQUE: Axial computed tomography images of the abdomen and pelvis with intravenous contrast. All CT scans at this facility use one or more dose reduction techniques, viz.: automated exposure control; ma/kV adjustment per patient size (including targeted exams where dose is matched to indication; i.e. head); or iterative reconstruction technique. Coronal and sagittal reformatted images were created and reviewed. CONTRAST: 90 mL of [id number] administered intravenously. COMPARISON: CT - ANGIO ABDOMEN PELVIS W/CONT 2017-03-27 09:17 FINDINGS: Lower thorax: Minimal atelectasis. ABDOMEN: Liver: Mild fatty infiltration. Gallbladder and bile ducts: No calcified stones. No ductal dilation. Pancreas: No ductal dilation. No mass. Spleen: No splenomegaly. Adrenals: No mass. Kidneys and ureters: No mass. No hydronephrosis. Stomach and bowel: Mild small bowel intussusception within left abdomen. Few additional minimal small bowel intussusceptions within left abdomen. No definite mural thickening. No obstruction. Appendix: Appendectomy. PELVIS: Bladder: Unremarkable. Reproductive: Apparent 1.7 x 1.3 x 1.6 cm faint peripherally enhancing hypodensity with crenulated margins within left ovary. Obliquely oriented IUD within lower uterine segment, grossly stable. ABDOMEN and PELVIS: Intraperitoneal space: Trace free fluid within pelvis. No free air. Bones/joints: No acute fracture. Soft tissues: Tiny umbilical hernia containing fat. Vasculature: Unremarkable. No aneurysm. Lymph nodes: No pathologically enlarged lymph nodes. IMPRESSION: 1. Small bowel intussusceptions. 2. Probable involuting or ruptured left ovarian follicle/cyst. 3. Malpositioned IUD, stable. 4. Incidental/non-acute findings are described above.
[2017-08-14] MEDS ORDERED: Morphine 4 MG/ML VIAL IVP PRN (03:50)
--- NOTE | 2017-08-14 03:54 | CP.PCM.HP ---
History of Present Illness - History of Present Illness History of Present Illness: General Surgery: Dr Ceballos Pt is a 32F with PMH of recurrent intussusception as diagnosed by CT scan on several ER visits. Pt has been seen by multiple surgeons as well as GI team. S /P lap appendectomy, UGI, and evaluation by vascular surgeon. No resolution of symptoms thus far. Pt reports her current presentation is similar to previous episodes. She feels a pain in the LUQ, cramping in nature, 7/10. She denies any vomiting during this current episode though she reports she has had this with associated N/V in the past. Continues to have daily BMs but only with the aid of bowel stimulants. Denies any f/c, sob or chest pain. Pt reports she was mostly recently being seen in [place] but was unable to continue care there as the surgeon did not accept medicaid. Present on Admission - Present on Admission Any Indicators Present on Admission: No Review of Systems - Review of Systems All systems: reviewed and no additional remarkable complaints except (as per hpi ) Past Patient History - Infectious Disease Hx of Infectious Diseases: None - Past Medical History & Family History Past Medical History?: Yes - Past Social History Smoking Status: Never Smoked - CARDIAC Hx Cardiac Disorders: No - PULMONARY Hx Respiratory Disorders: No - NEUROLOGICAL Hx Neurological Disorder: No - HEENT Hx HEENT Problems: No - RENAL Hx Chronic Kidney Disease: No - ENDOCRINE/METABOLIC Hx Endocrine Disorders: No - HEMATOLOGICAL/ONCOLOGICAL Hx Human Immunodeficiency Virus (HIV): No - INTEGUMENTARY Hx Dermatological Problems: No - MUSCULOSKELETAL/RHEUMATOLOGICAL Hx Musculoskeletal Disorders: No - GASTROINTESTINAL Hx Gastritis: Yes - GENITOURINARY/GYNECOLOGICAL Hx Genitourinary Disorders: No - PSYCHIATRIC Hx Psychophysiologic Disorder: No Hx Emotional Abuse: No Hx Physical Abuse: No Hx Substance Use: No - SURGICAL HISTORY Hx Tonsillectomy: Yes - ANESTHESIA Hx Anesthesia: Yes Hx Anesthesia Reactions: No Hx Malignant Hyperthermia: No Meds Allergies/Adverse Reactions: Allergies Allergy/AdvReac Type Severity Reaction Status Date / Time No Known Allergies Allergy Verified 08/13/17 23:18 Physical Exam - Constitutional Appears: Non-toxic, No Acute Distress - Head Exam Head Exam: NORMAL INSPECTION - Eye Exam Eye Exam: Normal appearance - ENT Exam ENT Exam: Mucous Membranes Moist - Respiratory Exam Respiratory Exam: absent: Accessory Muscle Use, Respiratory Distress - Cardiovascular Exam Cardiovascular Exam: REGULAR RHYTHM. absent: Tachycardia - GI/Abdominal Exam GI & Abdominal Exam: Soft, Tenderness (LUQ). absent: Distended, Firm, Guarding , Hernia, Mass - Neurological Exam Neurological exam: Alert, Oriented x3 - Psychiatric Exam Psychiatric exam: Normal Affect, Normal Mood Results - Vital Signs Recent Vital Signs: Last Vital Signs Temp 98.0 F 08/13/17 23:18 Pulse 77 08/13/17 23:18 Resp 16 08/13/17 23:18 BP 102/70 08/13/17 23:18 Pulse Ox 98 08/14/17 03:47 - Labs Result Diagrams: 08/13/17 00:16 08/13/17 00:16 Labs: Laboratory Results - last 24 hr 08/13/17 08/13/17 08/13/17 00:16 00:16 00:23 WBC 5.5 RBC 4.53 Hgb 11.5 L Hct 35.0 MCV 77.3 L MCH 25.4 L MCHC 32.8 L RDW 14.5 Plt Count 232 MPV 8.3 Neut % (Auto) 46.2 L Lymph % (Auto) 41.1 H [place] % (Auto) 7.2 Eos % (Auto) 4.5 H Baso % (Auto) 1.0 Neut # (Auto) 2.5 Lymph # (Auto) 2.3 [place] # (Auto) 0.4 Eos # (Auto) 0.2 Baso # (Auto) 0.1 pO2 29 L VBG pH 7.38 VBG pCO2 49 VBG HCO3 26.1 VBG Total CO2 30.5 H VBG O2 Sat (Calc) 57.7 VBG Base Excess 3.0 H VBG Potassium 3.8 Glucose 106 H Lactate 0.7 FiO2 21.0 Sodium 140 138.0 Potassium 3.8 Chloride 104 108.0 H Carbon Dioxide 25 Anion Gap 15 BUN 15 Creatinine 0.5 L Est GFR ( Amer) > 60 Est GFR (Non-Af Amer) > 60 Random Glucose 108 H Calcium 9.5 Total Bilirubin 0.3 AST 20 ALT 29 Alkaline Phosphatase 43 Total Protein 7.3 Albumin 4.1 Globulin 3.2 Albumin/Globulin Ratio 1.3 Venous Blood Potassium 3.8 Urine Color Urine Clarity Urine pH Ur Specific [place] Urine Protein Urine Glucose (UA) Urine Ketones Urine Blood Urine Nitrate Urine Bilirubin Urine Urobilinogen Ur Leukocyte Esterase Urine RBC (Auto) Urine Microscopic WBC Ur Squamous Epith Cells 08/14/17 00:25 WBC RBC Hgb Hct MCV MCH MCHC RDW Plt Count MPV Neut % (Auto) Lymph % (Auto) [place] % (Auto) Eos % (Auto) Baso % (Auto) Neut # (Auto) Lymph # (Auto) [place] # (Auto) Eos # (Auto) Baso # (Auto) pO2 VBG pH VBG pCO2 VBG HCO3 VBG Total CO2 VBG O2 Sat (Calc) VBG Base Excess VBG Potassium Glucose Lactate FiO2 Sodium Potassium Chloride Carbon Dioxide Anion Gap BUN Creatinine Est GFR ( Amer) Est GFR (Non-Af Amer) Random Glucose Calcium Total Bilirubin AST ALT Alkaline Phosphatase Total Protein Albumin Globulin Albumin/Globulin Ratio Venous Blood Potassium Urine Color Straw Urine Clarity Clear Urine pH 6.0 Ur Specific [place] 1.012 Urine Protein Negative Urine Glucose (UA) Neg Urine Ketones Negative Urine Blood Small Urine Nitrate Negative Urine Bilirubin Negative Urine Urobilinogen 0.2-1.0 Ur Leukocyte Esterase Neg Urine RBC (Auto) 2 Urine Microscopic WBC 1 Ur Squamous Epith Cells 2 Assessment & Plan - Assessment and Plan (Free Text) Assessment: 32F with possible intussusception Plan: admit NPO IV fluids morphine for pain pt to be evaluated by attending this morning further recs to follow Andree, PGY3
[2017-08-14] MEDS: Sodium Chloride 0.9% 1,000 ML IV SCH ×2 (04:18→15:36)
--- NOTE | 2017-08-14 09:19 | RAD ---
HISTORY: admit COMPARISON: 11/28/2016 FINDINGS: LUNGS: No active pulmonary disease. PLEURA: No significant pleural effusion identified, no pneumothorax apparent. CARDIOVASCULAR: Normal. OSSEOUS STRUCTURES: No significant abnormalities. VISUALIZED UPPER ABDOMEN: Normal. OTHER FINDINGS: None. IMPRESSION: No active disease.
--- NOTE | 2017-08-14 11:38 | CARD ---
APPROVED REPORT EKG Measurement Heart [id number] IN 150P [id number] <Conclusion> Normal sinus rhythm Right axis deviation Abnormal ECG
[2017-08-15] MEDS: Sodium Chloride 0.9% 1,000 ML IV SCH ×3 (02:02→23:30)
[2017-08-15 07:20] LABS: BASO % 1.1 % (0.0-2.0); EOS # 0.2 K/uL (0.0-0.7); HEMOGLOBIN 10.8 g/dL (12.0-16.0); LYMPH # 1.6 K/uL (1.0-4.3); MEAN CELL VOLUME 77.8 fl (81.0-99.0); MEAN CORPUSCULAR HEMOGLOBIN 25.1 pg (27.0-31.0); MEAN CORPUSCULAR HGB CONC 32.2 g/dL (33.0-37.0); MONO # 0.3 K/uL (0.0-0.8); MONO % 7.8 % (0.0-10.0); NEUT # 1.3 K/uL (1.8-7.0); NEUT % 37.1 % (50.0-75.0); NRBC % 0.2 % (0.0-0.0); RBC 4.32 Mil/uL (3.80-5.20); RED CELL DISTRIBUTION WIDTH 14.5 % (11.5-14.5); WHITE BLOOD COUNT 3.4 K/uL (4.8-10.8)
[2017-08-15 07:42] LABS: BLOOD UREA NITROGEN 8 mg/dl (7-17); CALCIUM 8.6 mg/dL (8.4-10.2); GFR AFRICAN-AMERICAN > 60; GFR NON-AFRICAN AMERICAN > 60
--- NOTE | 2017-08-15 08:47 | CP.PCM.PN ---
Subjective - Date & Time of Evaluation Date of Evaluation: 08/15/17 Time of Evaluation: 08:00 - Subjective Subjective: PROGRESS NOTE FOR DR. JULIAN 32F seen and examined at bedside. Patient states pain is improved. Denies nausea , vomiting. States she has always been having flatus and bowel movement, denies blood in the stool. Objective - Vital Signs/Intake and Output Vital Signs (last 24 hours): Temp Pulse Resp BP Pulse Ox 98.4 F 65 17 103/72 98 08/15/17 07:39 08/15/17 07:39 08/15/17 07:39 08/15/17 07:39 08/15/17 07:39 - Medications Medications: Current Medications Acetaminophen (Tylenol 325mg Tab) 650 mg PO Q4 PRN PRN Reason: Headache Last Admin: 08/15/17 02:13 Dose: 650 mg Sodium Chloride (Sodium Chloride 0.9%) 1,000 mls @ 125 mls/hr IV .Q8H BRIAN Stop: 08/16/17 07:20 Morphine Sulfate (Morphine) 2 mg IVP Q4 PRN PRN Reason: Pain, Mild (1-3) Last Admin: 08/14/17 09:12 Dose: 2 mg - Labs Labs: 08/15/17 07:10 08/15/17 07:10 - Constitutional Appears: Well, Non-toxic, No Acute Distress - Head Exam Head Exam: ATRAUMATIC - Eye Exam Eye Exam: EOMI, Normal appearance - Respiratory Exam Respiratory Exam: Clear to Ausculation Bilateral, NORMAL BREATHING PATTERN - Cardiovascular Exam Cardiovascular Exam: REGULAR RHYTHM, +S1, +S2 - GI/Abdominal Exam GI & Abdominal Exam: Soft, Tenderness (very mildly tender). absent: Distended, Firm, Guarding, Rigid - Extremities Exam Extremities Exam: Normal Inspection - Neurological Exam Neurological Exam: Alert, Awake, Oriented x3 - Skin Skin Exam: Dry, Intact, Normal Color, Warm Assessment and Plan - Assessment and Plan (Free Text) Assessment: 32F with recurrent abdominal pain that is currently improving likely due to intussuception as seen on CT Plan: - Patient currently NPO - IV Fluids - Pain control - serial abdominal exams - Pending decision for OR Further recs discuss with Dr Tucker Whitehead, PGY2
[2017-08-15 09:39] LABS: PARTIAL THROMBOPLASTIN TIME 32.4 Seconds (25.6-37.1); PROTHROMBIN TIME 11.3 Seconds (9.8-13.1)
[2017-08-15] MEDS ORDERED: Phenylephrine 10 mg/ml Inj ONE (11:37)
[2017-08-15] MEDS ORDERED: Rocuronium 10 mg/ml (5 ml) ONE (11:37)
[2017-08-15] MEDS ORDERED: Lidocaine 4% (Laryng-O-Jet) Kit MM ONE (11:37)
[2017-08-15] MEDS ORDERED: Succinylcholine 200 mg/10 ml Inj IV ONE (11:37)
[2017-08-15] MEDS ORDERED: Bupivacaine HCl 0.25% PF (30 ml) Inj ONE (13:05)
[2017-08-15] MEDS ORDERED: Neostigmine 1:1000 (1 mg/ml) Inj ONE (13:06)
[2017-08-15] MEDS ORDERED: Lidocaine 1% Inj (20ml) ONE (13:09)
[2017-08-15] MEDS ORDERED: metroNIDAZOLE 500mg/100ml NS 0 ML IVPB ONE (13:10)
[2017-08-15] MEDS ORDERED: Bupivacaine 0.5% Inj(30mL) ONE (13:10)
[2017-08-15] MEDS ORDERED: Ciprofloxacin 400mg/200ml D5W 0 MG/0 ML BAG IVPB ONE (13:10)
[2017-08-15] MEDS ORDERED: Lactated Ringer's 1,000 ML IV ONE ×3 (13:25→15:57)
[2017-08-15] MEDS ORDERED: Propofol 10 mg/ml Inj (20 ML) ONE (13:31)
[2017-08-15] MEDS ORDERED: Midazolam 2 MG/2 ML VIAL ONE (13:31)
[2017-08-15] MEDS ORDERED: Dexamethasone 4 mg/1 ml ONE (13:46)
[2017-08-15] MEDS ORDERED: Desflurane Inhalation Anesthetic Liq (240 ml) ONE (14:22)
--- NOTE | 2017-08-15 14:54 | PCM.SURG1 ---
Surgeon's Initial Post Op Note - Surgeon's Notes Surgeon: Dr. Ceballos Solderer Assembler: Dr. Reyes PGY2, Dr. Whitehead PGY2, Dr. Kennedy DPM Type of Anesthesia: General Endo Pre-Operative Diagnosis: Reccurent Intussusception Operative Findings: See operative dictation Post-Operative Diagnosis: Resolved intussusception Operation Performed: Exploratory Laparoscopy Specimen/Specimens Removed: None Estimated Blood Loss: EBL {In ML}: 5 Blood Products Given: N/A Drains Used: No Drains Post-Op Condition: Good Date of Surgery/Procedure: 08/15/17 Time of Surgery/Procedure: 14:57
[2017-08-15 19:31] VITALS: TEMP 98.3
[2017-08-15] MEDS: Oxycodone/Acetaminophen 5/325 mg Tab PO PRN (19:33)
[2017-08-15] MEDS: Lactated Ringer's 1,000 ML IV SCH (21:29)
[2017-08-16] MEDS: Oxycodone/Acetaminophen 5/325 mg Tab PO PRN ×3 (01:09→13:22)
[2017-08-16] MEDS: Lactated Ringer's 1,000 ML IV SCH (01:12)
[2017-08-16 11:14] VITALS: BP 96/57; PULSE 76; RESP 17; O2SAT 97
--- NOTE | 2017-08-16 15:21 | CP.PCM.DIS ---
Provider - Provider Date of Admission: 08/14/17 02:45 Attending physician: Jerzy Ceballos MD Time Spent in preparation of Discharge (in minutes): 60 Hospital Course - Lab Results Lab Results: Most Recent Lab Values WBC 3.4 K/uL (4.8-10.8) L 08/15/17 07:10 RBC 4.32 Mil/uL (3.80-5.20) 08/15/17 07:10 Hgb 10.8 g/dL (12.0-16.0) L 08/15/17 07:10 Hct 33.6 % (34.0-47.0) L 08/15/17 07:10 MCV 77.8 fl (81.0-99.0) L 08/15/17 07:10 MCH 25.1 pg (27.0-31.0) L 08/15/17 07:10 MCHC 32.2 g/dL (33.0-37.0) L 08/15/17 07:10 RDW 14.5 % (11.5-14.5) 08/15/17 07:10 Plt Count 215 K/uL (130-400) 08/15/17 07:10 MPV 8.0 fl (7.2-11.7) 08/15/17 07:10 Neut % (Auto) 37.1 % (50.0-75.0) L 08/15/17 07:10 Lymph % (Auto) 47.0 % (20.0-40.0) H 08/15/17 07:10 [place] % (Auto) 7.8 % (0.0-10.0) 08/15/17 07:10 Eos % (Auto) 7.0 % (0.0-4.0) H 08/15/17 07:10 Baso % (Auto) 1.1 % (0.0-2.0) 08/15/17 07:10 Neut # (Auto) 1.3 K/uL (1.8-7.0) L 08/15/17 07:10 Lymph # (Auto) 1.6 K/uL (1.0-4.3) 08/15/17 07:10 [place] # (Auto) 0.3 K/uL (0.0-0.8) 08/15/17 07:10 Eos # (Auto) 0.2 K/uL (0.0-0.7) 08/15/17 07:10 Baso # (Auto) 0.0 K/uL (0.0-0.2) 08/15/17 07:10 PT 11.3 Seconds (9.8-13.1) 08/15/17 09:20 INR 1.0 (0.9-1.2) 08/15/17 09:20 APTT 32.4 Seconds (25.6-37.1) 08/15/17 09:20 pO2 29 mm/Hg (30-55) L 08/13/17 00:23 VBG pH 7.38 (7.32-7.43) 08/13/17 00:23 VBG pCO2 49 mmHg (40-60) 08/13/17 00:23 VBG HCO3 26.1 mmol/L 08/13/17 00:23 VBG Total CO2 30.5 mmol/L (22-28) H 08/13/17 00:23 VBG O2 Sat (Calc) 57.7 % (40-65) 08/13/17 00:23 VBG Base Excess 3.0 mmol/L (0.0-2.0) H 08/13/17 00:23 VBG Potassium 3.8 mmol/L (3.6-5.2) 08/13/17 00:23 Sodium 138.0 mmol/L (132-148) 08/13/17 00:23 Chloride 108.0 mmol/L (98-107) H 08/13/17 00:23 Glucose 106 mg/dL (65-105) H 08/13/17 00:23 Lactate 0.7 mmol/L (0.7-2.1) 08/13/17 00:23 FiO2 21.0 % 08/13/17 00:23 Sodium 140 mmol/l (132-148) 08/15/17 07:10 Potassium 4.1 MMOL/L (3.6-5.0) 08/15/17 07:10 Chloride 106 mmol/L (98-107) 08/15/17 07:10 Carbon Dioxide 24 mmol/L (22-30) 08/15/17 07:10 Anion Gap 14 (10-20) 08/15/17 07:10 BUN 8 mg/dl (7-17) 08/15/17 07:10 Creatinine 0.6 mg/dl (0.7-1.2) L 08/15/17 07:10 Est GFR ( Amer) > 60 08/15/17 07:10 Est GFR (Non-Af Amer) > 60 08/15/17 07:10 Random Glucose 91 mg/dL (65-105) 08/15/17 07:10 Calcium 8.6 mg/dL (8.4-10.2) 08/15/17 07:10 Total Bilirubin 0.3 mg/dl (0.2-1.3) 08/13/17 00:16 AST 20 U/L (14-36) 08/13/17 00:16 ALT 29 U/L (9-52) 08/13/17 00:16 Alkaline Phosphatase 43 U/L (38-126) 08/13/17 00:16 Total Protein 7.3 G/DL (6.3-8.2) 08/13/17 00:16 Albumin 4.1 g/dL (3.5-5.0) 08/13/17 00:16 Globulin 3.2 gm/dL (2.2-3.9) 08/13/17 00:16 Albumin/Globulin Ratio 1.3 (1.0-2.1) 08/13/17 00:16 Venous Blood Potassium 3.8 mmol/L (3.6-5.2) 08/13/17 00:23 Urine Color Straw (YELLOW) 08/14/17 00:25 Urine Clarity Clear (Clear) 08/14/17 00:25 Urine pH 6.0 (5.0-8.0) 08/14/17 00:25 Ur Specific [place] 1.012 (1.003-1.030) 08/14/17 00:25 Urine Protein Negative mg/dL (NEGATIVE) 08/14/17 00:25 Urine Glucose (UA) Neg mg/dL (Normal) 08/14/17 00:25 Urine Ketones Negative mg/dL (NEGATIVE) 08/14/17 00:25 Urine Blood Small (NEGATIVE) 08/14/17 00:25 Urine Nitrate Negative (NEGATIVE) 08/14/17 00:25 Urine Bilirubin Negative (NEGATIVE) 08/14/17 00:25 Urine Urobilinogen 0.2-1.0 mg/dL (0.2-1.0) 08/14/17 00:25 Ur Leukocyte Esterase Neg Matt/uL (Negative) 08/14/17 00:25 Urine RBC (Auto) 2 /hpf (0-3) 08/14/17 00:25 Urine Microscopic WBC 1 /hpf (0-5) 08/14/17 00:25 Ur Squamous Epith Cells 2 /hpf (0-5) 08/14/17 00:25 - Hospital Course Hospital Course: 32F with long history of intussuception presents with abdominal and on CT scan has multiple areas of intussuception with main location being in the LUQ. Patient admitted for pain control and monitoing for bowel function which she had. On the second day of admision patient underwent diagnostic laparoscopy which yielding no intussuception. Lead point was not found after running the bowel three times. Pain control was maintain after operation and patient pain improved. She was concerns of this intussuception re-occurring. Told to return to ED for any emergencies or severe pain. Discharge Exam - Head Exam Head Exam: ATRAUMATIC - Eye Exam Eye Exam: EOMI, PERRL - Respiratory Exam Respiratory Exam: Clear to PA & Lateral, NORMAL BREATHING PATTERN - Cardiovascular Exam Cardiovascular Exam: REGULAR RHYTHM, +S1, +S2 - GI/Abdominal Exam GI & Abdominal Exam: Soft. absent: Distended, Firm, Guarding, Rebound, Rigid Additional comments: incisions CDI - Neurological Exam Neurological exam: Alert, Oriented x3 - Psychiatric Exam Psychiatric exam: Normal Affect, Normal Mood - Skin Skin Exam: Dry, Intact, Normal Color, Warm Discharge Plan - Follow Up Plan Condition: FAIR Disposition: HOME/ ROUTINE Instructions: Intussusception (DC), Small Bowel Resection (DC) Additional Instructions: Please return to ED for any emergencies. May have regular diet as tolerated. Over the counter medication for pain. Glue on incisions will fall off on their own. May shower, but do not submerge wound under water. Please follow up with Dr Ceballos in 2 weeks. Referrals: Jerzy Ceballos MD [Staff Provider] - Lisa Segura MD [Family Provider] -
--- NOTE | 2017-08-17 01:22 | OP ---
PROCEDURE DATE: 08/15/2017 SURGEON: Dr. Jrezy Ceballos. SPRAY GUN STRIPER: Charley Reyes. ANESTHESIA: General. PREOPERATIVE DIAGNOSIS: Recurrent small bowel intussusception. POSTOPERATIVE DIAGNOSIS: Recurrent small bowel intussusception. PROCEDURE: Diagnostic laparoscopy. DESCRIPTION OF OPERATION: With the patient in the supine position under adequate general anesthesia, the abdomen was prepped and draped in the usual sterile manner. Veress needle puncture was performed at the umbilicus with insufflation to 15 cm water pressure of CO2 and a 5 mm laparoscopic trocar was inserted via an infraumbilical incision. Under direct vision, additional 5 mm trocars were inserted to the right and left of the umbilicus and inspection of the abdomen via the three ports revealed mild adhesions of the omentum to the right lower quadrant where the patient had undergone previous laparoscopic appendectomy as well as to the area of the umbilicus. The mobile portion of the omentum was elevated into the right upper quadrant and the transverse colon was identified and the small bowel was then run from the ligament of Treitz through its entire length down to the terminal ileum each. The each bowel loop was elevated and inspected and there was no evidence of current intussusception nor any serosal lesions or gross internal lesions identified. The scope was repositioned as necessary to allow full visualization of the small bowel and the distal bowel was examined retrograde beginning at the terminal ileum and continuing retrograde also to be sure that the entire small bowel had been visualized and no lesions or intussusception were identified. There were physiologic areas of dilatation and narrowing of the bowel consistent with normal peristalsis, but no evidence of mass or obstruction. When the full inspection had been completed, the pneumoperitoneum was released and the trocars were removed. Incisions were closed with 4-0 Monocryl subcuticular sutures and Dermabond and dry sterile dressings were applied. The patient tolerated the procedure well and transferred to recovery room in stable condition. Estimated blood loss for the procedure was 5 ml. Jerzy Ceballos MD [facility]ITALAnna
== END 2017-08-16 15:30 | disposition home or self-care (01) | DRG 171 ==
LOC: H.ER 23:12 → H.ERHOLD 08-14 02:45 → H.MEDSURG1 08-14 04:54
PROVIDERS: ADMIT Specialist; ATTEND Specialist
PROC: 0WJP4ZZ Inspection of Gastrointestinal Tract, Percutaneous Endoscopic Approach (ICD-10-PCS; principal; 2017-08-15 12:45)
DX: K56.1 Intussusception (principal); K29.70 Gastritis, unspecified, without bleeding; T83.32XA Displacement of intrauterine contraceptive device, initial encounter; Y76.2 Prosthetic and other implants, materials and accessory obstetric and gynecological devices associated with adverse incidents

== ENCOUNTER 2017-10-16 21:52 | Emergency (ER) | payer MEDICAID ==
[2017-10-16 21:52] VITALS: BMI 29.2
[2017-10-16 22:10] VITALS: O2SAT 99
[2017-10-16] MEDS ORDERED: Dexamethasone 10 MG in Sodium Chloride 0.9% 50 ML IVPB STA (22:43)
[2017-10-16] MEDS ORDERED: Dexamethasone 4 mg/1 ml ONE (22:50)
--- NOTE | 2017-10-16 22:53 | ED PDOC ---
HPI: CCC, URI, Sore Throat Time Seen by Provider: 10/16/17 22:13 Chief Complaint (Nursing): ENT Problem History Per: Patient Additional Complaint(s): Pt. states since last night she's had a sore throat mainly in the lower portion of the front of the neck. States she took Motrin today without any relief. Denies fever, SOB, throat swelling, sick contacts, recent travel. Past Medical History Reviewed: Historical Data, Nursing Documentation, Vital Signs Vital Signs: Last Vital Signs Temp 98.3 F 10/16/17 22:08 Pulse 84 10/16/17 22:08 Resp 16 10/16/17 22:08 BP 116/74 10/16/17 22:08 Pulse Ox 99 10/16/17 22:53 - Medical History PMH: Gastritis Denies: HIV, Chronic Kidney Disease - Surgical History Surgical History: Tonsillectomy, (x3) - Family History Family History: States: Unknown Family Hx - Immunization History Hx Tetanus Toxoid Vaccination: No Hx Influenza Vaccination: No Hx Pneumococcal Vaccination: No - Home Medications Home Medications: Ambulatory Orders Medication Instructions Recorded Acetaminophen/Butalbital/Caf 1 tab PO Q12 PRN 08/14/17 [Fioricet] Linaclotide [Linzess] 72 mcg PO DAILY 08/14/17 Pantoprazole [Protonix] 40 mg PO DAILY 08/14/17 - Allergies Allergies/Adverse Reactions: Allergies Allergy/AdvReac Type Severity Reaction Status Date / Time No Known Allergies Allergy Verified 08/13/17 23:18 Review of Systems ROS Statement: Except As Marked, All Systems Reviewed And Found Negative ENT: Positive for: Throat Pain Physical Exam - Physical Exam Appears: Positive for: Well, Non-toxic, No Acute Distress Skin: Positive for: Normal Color, Warm. Negative for: Rash Eye Exam: Positive for: Normal appearance ENT: Positive for: TM Is/Are (non-erythematous, non-bulging b/l), Other (able to swallow saliva; no trismus). Negative for: Pharyngeal Erythema, Tonsillar Exudate, Tonsillar Swelling Neck: Positive for: Normal. Negative for: Painless ROM Cardiovascular/Chest: Positive for: Regular Rate, Rhythm Respiratory: Positive for: CNT, Normal Breath Sounds Gastrointestinal/Abdominal: Positive for: Normal Exam, Soft. Negative for: Tenderness Neurologic/Psych: Positive for: Alert, Oriented. Negative for: Aphasia, Facial Droop - Laboratory Results Result Diagrams: 10/16/17 23:08 10/16/17 23:08 - ECG O2 Sat by Pulse Oximetry: 99 - Progress ED Course And Treament: Labs, decadron 10mg IVPB, CT soft tissue neck with IV contrast ordered. Disposition - Clinical Impression Clinical Impression: Odynophagia - Patient ED Disposition Is Patient to be Admitted: Transfer of Care (Signed out to Cecilio ZAZUETA pending CT results and final disposition.) - Disposition Disposition: Routine/Home Disposition Time: 00:00 Condition: STABLE Forms: [employer] (Albanian)
[2017-10-16 23:12] LABS: BASO # 0.1 K/uL (0.0-0.2); BASO % 1.2 % (0.0-2.0); EOS # 0.2 K/uL (0.0-0.7); EOS % 4.3 % (0.0-4.0); LYMPH % 37.3 % (20.0-40.0); MEAN CELL VOLUME 77.1 fl (81.0-99.0); MEAN CORPUSCULAR HEMOGLOBIN 24.9 pg (27.0-31.0); MEAN CORPUSCULAR HGB CONC 32.2 g/dL (33.0-37.0); MEAN PLATELET VOLUME 8.8 fl (7.2-11.7); MONO # 0.5 K/uL (0.0-0.8); MONO % 9.1 % (0.0-10.0); NEUT # 2.6 K/uL (1.8-7.0); NEUT % 48.1 % (50.0-75.0); NRBC % 0.1 % (0.0-0.0); RBC 4.44 Mil/uL (3.80-5.20); RED CELL DISTRIBUTION WIDTH 14.6 % (11.5-14.5); WHITE BLOOD COUNT 5.3 K/uL (4.8-10.8)
[2017-10-16 23:21] LABS: ALB/GLOB RATIO 1.2 (1.0-2.1); ALBUMIN 4.2 g/dL (3.5-5.0); ALT/SGPT 42 U/L (9-52); AST/SGOT 21 U/L (14-36); BLOOD UREA NITROGEN 16 mg/dl (7-17); GFR AFRICAN-AMERICAN > 60; GFR NON-AFRICAN AMERICAN > 60
[2017-10-16] MEDS ORDERED: Iohexol 300 100 ML IJ ONE (23:34)
[2017-10-16] MEDS ORDERED: Sodium Chloride 0.9% 100 ML ONE (23:34)
--- NOTE | 2017-10-17 00:37 | CT ---
EXAM: CT Neck With Intravenous Contrast EXAM DATE/TIME: 10/16/2017 10:44 PM CLINICAL HISTORY: 32 years old, female; Pain; Painful swallowing; Additional info: Anterior neck pain, odynophagia TECHNIQUE: Axial computed tomography images of the neck with intravenous contrast. All CT scans at this facility use one or more dose reduction techniques, viz.: automated exposure control; ma/kV adjustment per patient size (including targeted exams where dose is matched to indication; i.e. head); or iterative reconstruction technique. Coronal and sagittal reformatted images were created and reviewed. CONTRAST: 85 mL of [id number] administered intravenously. COMPARISON: CR - NECK SOFT TISSUE 2017-10-16 22:25 FINDINGS: Brain: No acute abnormalities are seen in visualized portion of the brain. Sinuses: There is mucoperiosteal thickening in the ethmoid sinuses. There is a large retention cyst/polyp in the left maxillary antrum. There is minimal mucosal thickening in the base of the right maxillary sinus. Ears and mastoids: Middle ears and mastoids are unremarkable Orbits: Orbital contents are unremarkable. Dental: There is streak artifact from dental fillings. Tonsils and adenoids: Tonsils and adenoids are unremarkable. Deep facial spaces: Parapharyngeal spaces are symmetric. There are no facial masses. Salivary glands: Parotid and submandibular glands are unremarkable. Airway: Airway is unremarkable Thyroid: Thyroid is prominent. There are no discrete masses. There is thickening of the isthmus. Vascular: Vascular structures are unremarkable. Nodes: There is no pathologic adenopathy. Lung apices: Lung apices are clear. Bony structures:There are no acute osseous abnormalities. IMPRESSION: Prominence of the thyroid with thickening of the isthmus, correlation with thyroid function tests may be helpful; sinus disease
--- NOTE | 2017-10-17 01:21 | ED PDOC ---
- Laboratory Results Result Diagrams: 10/16/17 23:08 10/16/17 23:08 - ECG O2 Sat by Pulse Oximetry: 99 - Progress ED Course And Treament: Case endorsed to display card writer from Lamar ZAZUETA pending CT EXAM: CT Neck With Intravenous Contrast EXAM DATE/TIME: 10/16/2017 10:44 PM CLINICAL HISTORY: 32 years old, female; Pain; Painful swallowing; Additional info: Anterior neck pain, odynophagia TECHNIQUE: Axial computed tomography images of the neck with intravenous contrast. All CT scans at this facility use one or more dose reduction techniques, viz.: automated exposure control; ma/kV adjustment per patient size (including targeted exams where dose is matched to indication; i.e. head); or iterative reconstruction technique. Coronal and sagittal reformatted images were created and reviewed. CONTRAST: 85 mL of [id number] administered intravenously. COMPARISON: CR - NECK SOFT TISSUE 2017-10-16 22:25 FINDINGS: Brain: No acute abnormalities are seen in visualized portion of the brain. Sinuses: There is mucoperiosteal thickening in the ethmoid sinuses. There is a large retention cyst/polyp in the left maxillary antrum. There is minimal mucosal thickening in the base of the right maxillary sinus. Ears and mastoids: Middle ears and mastoids are unremarkable Orbits: Orbital contents are unremarkable. Dental: There is streak artifact from dental fillings. Tonsils and adenoids: Tonsils and adenoids are unremarkable. Deep facial spaces: Parapharyngeal spaces are symmetric. There are no facial masses. Salivary glands: Parotid and submandibular glands are unremarkable. Airway: Airway is unremarkable Thyroid: Thyroid is prominent. There are no discrete masses. There is thickening of the isthmus. Vascular: Vascular structures are unremarkable. Nodes: There is no pathologic adenopathy Lung apices: Lung apices are clear. Bony structures:There are no acute osseous abnormalities. IMPRESSION: Prominence of the thyroid with thickening of the isthmus, correlation with thyroid function tests may be helpful; sinus disease Patient educated on findings, discharged with rx naproxen Copy of ct given to patient, with instructions to follow up PMD in 2-3 days. Return precautions given. Disposition - Clinical Impression Clinical Impression: Odynophagia, Throat pain in adult - POA Present On Arrival: None - Disposition Disposition: Routine/Home Disposition Time: 01:40 Condition: IMPROVED Prescriptions: Naproxen [Naprosyn] 500 mg PO Q12 PRN #20 tablet PRN Reason: Pain, Moderate (4-7) Forms: [facility] (Swedish)
[2017-10-17 01:52] VITALS: TEMP 98.2
[2017-10-17 01:55] VITALS: BP 103/66; PULSE 78; RESP 18
--- NOTE | 2017-10-17 09:53 | RAD ---
PROCEDURE: Radiographs of the neck (soft tissue). HISTORY: pain COMPARISON: None. TECHNIQUE: Frontal and Lateral Radiographs of the neck, optimized for soft tissue visualization. FINDINGS: SOFT TISSUES: Unremarkable. No radiopaque foreign body seen. CERVICAL SPINE: No acute fractures. Small marginal anterior osteophyte formation seen at the C5-C6 and to a lesser degree C6-C7 levels. Disc space heights maintained. There is normal alignment OTHER FINDINGS: None. IMPRESSION: Unremarkable radiographs of the soft tissues of the neck. . If symptoms persist or the further evaluation required consider followup CT scan of the cervical spine and/or neck
== END 2017-10-17 01:56 | disposition home or self-care (01) ==
LOC: H.ER 21:52
DX: R13.12 Dysphagia, oropharyngeal phase (principal); R07.0 Pain in throat; J33.8 Other polyp of sinus; J32.9 Chronic sinusitis, unspecified
CPT/HCPCS: 70360; 70491; 80053; 81025; 85025; 87040; 87070; 87430; 96374; 99284; J1100; J1885; Q9967

== ENCOUNTER 2018-08-12 10:29 | Emergency (ER) | payer MEDICAID ==
[2018-08-12 10:30] VITALS: BMI 29.2
[2018-08-12 10:38] VITALS: RESP 15; O2SAT 100
[2018-08-12] MEDS ORDERED: Sodium Chloride 0.9% 1,000 ML IV STA (11:30)
[2018-08-12] MEDS ORDERED: Iohexol 240 (50 ml) PO ONE (11:30)
[2018-08-12] MEDS ORDERED: Iohexol 240 (50 ml) ONE (11:39)
--- NOTE | 2018-08-12 11:58 | ED PDOC ---
HPI: Abdomen Time Seen by Provider: 08/12/18 11:08 Chief Complaint (Nursing): Abdominal Pain Chief Complaint (Provider): Left abdominal pain History Per: Patient History/Exam Limitations: no limitations Onset/Duration Of Symptoms: Days Current Symptoms Are (Timing): Still Present Location Of Pain/Discomfort: LUQ, LLQ Quality Of Discomfort: "Pain" Associated Symptoms: Nausea, Vomiting. denies: Diarrhea Additional Complaint(s): 33yo female, with history of intussuception, comes to ER reporting left sided abdominal pain, present intermittently, but worsened over the past couple days. She reports associated nausea and vomiting, and states she has had no PO intake in 1 day. She denies any associated fever, chills, chest pain or urinary symptoms. Patient did not take any medication for her pain. PMD: Dr. Segura Abnormal Vaginal Bleeding: No Past Medical History Reviewed: Historical Data, Nursing Documentation, Vital Signs Vital Signs: Last Vital Signs Temp 98.1 F 08/12/18 10:38 Pulse 71 08/12/18 10:38 Resp 15 08/12/18 10:38 BP 104/62 08/12/18 10:38 Pulse Ox 100 08/12/18 10:38 - Medical History PMH: Gastritis Denies: HIV, Chronic Kidney Disease - Surgical History Surgical History: Appendectomy, Tonsillectomy, (x3) Other surgeries: ex-lap - Family History Family History: States: No Known Family Hx - Living Arrangements Living Arrangements: With Family - Immunization History Hx Tetanus Toxoid Vaccination: No Hx Influenza Vaccination: No Hx Pneumococcal Vaccination: No - Home Medications Home Medications: Ambulatory Orders Medication Instructions Recorded Acetaminophen/Butalbital/Caf 1 tab PO Q12 PRN 08/14/17 [Fioricet] Linaclotide [Linzess] 72 mcg PO DAILY 08/14/17 Pantoprazole [Protonix] 40 mg PO DAILY 08/14/17 Naproxen [Naprosyn] 500 mg PO Q12 PRN #20 tablet 10/17/17 Famotidine [Pepcid] 20 mg PO DAILY PRN #6 tab 08/12/18 Ibuprofen [Motrin] 600 mg PO TID 7 Days tab 08/12/18 Lidocaine 5% [Lidoderm] 1 ea TD DAILY PRN #5 patch 08/12/18 - Allergies Allergies/Adverse Reactions: Allergies Allergy/AdvReac Type Severity Reaction Status Date / Time No Known Allergies Allergy Verified 08/13/17 23:18 Review of Systems ROS Statement: Except As Marked, All Systems Reviewed And Found Negative Constitutional: Negative for: Fever, Chills Cardiovascular: Negative for: Chest Pain Respiratory: Negative for: Shortness of Breath Gastrointestinal: Positive for: Nausea, Vomiting, Abdominal Pain. Negative for: Diarrhea Genitourinary Female: Negative for: Dysuria, Hematuria Physical Exam - Reviewed Nursing Documentation Reviewed: Yes Vital Signs Reviewed: Yes - Physical Exam Appears: Positive for: Non-toxic, No Acute Distress Head Exam: Positive for: ATRAUMATIC, NORMAL INSPECTION, NORMOCEPHALIC Skin: Positive for: Normal Color Eye Exam: Positive for: EOMI, PERRL Neck: Positive for: Normal, Supple Cardiovascular/Chest: Positive for: Regular Rate, Rhythm Respiratory: Positive for: Normal Breath Sounds Gastrointestinal/Abdominal: Positive for: Soft, Tenderness (left abdominal tenderness). Negative for: Distended, Guarding, Rebound Back: Positive for: Normal Inspection. Negative for: L CVA Tenderness, R CVA Tenderness Extremity: Positive for: Normal ROM. Negative for: Pedal Edema Neurologic/Psych: Positive for: Alert, Oriented. Negative for: Motor/Sensory Deficits - Laboratory Results Result Diagrams: 08/12/18 11:50 08/12/18 11:55 Lab Results: no acute - ECG O2 Sat by Pulse Oximetry: 100 (RA) Pulse Ox Interpretation: Normal - CT Scan/US ct Other Rad Studies (CT/US): Read By Radiologist Other Rad Interpretation: no acute - Progress ED Course And Treament: 1705: Feels better. AAOx3. Pain free. Tolerated PO. Fu with gi and surgery. Medical Decision Making Medical Decision Making: Impression: Abdominal pain Plan: -- Labs -- CT Abdomen/Pelvis -- Pepcid 20mg iv -- Toradol 15mg IV -- IV Fluids Patient has an extensive history of evaluation at this hospital; last seen in ER on 08/14/17 for similar pain and was admitted under Dr. Ceballos's service. Patient states she had an exploratory laparoscopy done, which revealed a resolved intussuception. Patient states the pain is always present, but worse now. Also states she followed up with a vascular surgeon, with no findings. 1500 Labs reviewed, no clinically significant abnormalities Patient pending CT 1615 CT Abdomen/Pelvis FINDINGS: LOWER THORAX: Unremarkable. LIVER: Diminished attenuation throughout the liver is identified without intrahepatic biliary dilatation or mass. GALLBLADDER AND BILE DUCTS: Unremarkable. PANCREAS: Unremarkable. No gross lesion or ductal dilatation. SPLEEN: Spleen is upper limits normal size at 12.9 cm without focal mass evident. ADRENALS: Unremarkable. No mass. KIDNEYS AND URETERS: Unremarkable. No hydronephrosis. No solid mass. VASCULATURE: Unremarkable. No aortic aneurysm. No aortic atherosclerotic calcification or mural plaque present. BOWEL: Prior small bowel intussusception is appear to have reduced with no recurrence at this moment. Large-bowel is remarkable for limited residual retained fecal material intermixed with oral contrast in various segments. No obstruction. No gross mural thickening. APPENDIX: Prior appendectomy evident. PERITONEUM: Tiny umbilical hernia is again noted containing only fat. No free fluid. No free air. LYMPH NODES: Unremarkable. No enlarged lymph nodes. BLADDER: Unremarkable. REPRODUCTIVE: Prior IUD now no longer visualized. BONES: No acute fracture. OTHER FINDINGS: None. IMPRESSION: 1. Hepatic steatosis identified. 2. Multiple prior small bowel intussusceptions have resolved at the left clementina abdomen with no recurrence appreciable at this time. No bowel obstruction, mesenteric edema, ascites or free intra peritoneal gas collection identified. 3. Upper limits normal size spleen, nonfocal. 4. Prior appendectomy again evident. 5. Status post removal of apparent prior IUD. Scribe Attestation: Documented by Stefania Niño acting as a scribe for Sharath Asher MD Provider Attestation: All medical record entries made by the Scribe were at my direction and personally dictated by me. I have reviewed the chart and agree that the record accurately reflects my personal performance of the history, physical exam, medical decision making, and the department course for this patient. I have also personally directed, reviewed, and agree with the discharge instructions and disposition. Disposition - Clinical Impression Clinical Impression: Abdominal discomfort - Patient ED Disposition Is Patient to be Admitted: No Counseled Patient/Family Regarding: Studies Performed, Diagnosis, Need For Followup, Rx Given - Disposition Referrals: Lisa Segura MD [Primary Care Provider] - 08/13/18 Darrian Felder MD [Staff Provider] - 08/13/18 Yohan Oquendo MD [Staff Provider] - 08/13/18 Disposition: Routine/Home Disposition Time: 17:08 Condition: STABLE Additional Instructions: Return if not better in 3 days. Prescriptions: Famotidine [Pepcid] 20 mg PO DAILY PRN #6 tab PRN Reason: Pain Ibuprofen [Motrin] 600 mg PO TID 7 Days tab Lidocaine 5% [Lidoderm] 1 ea TD DAILY PRN #5 patch PRN Reason: Pain, Moderate (4-7) Instructions: Stomach Ache and Stomach Upset Forms: [facility] (Sinhala), [facility] ED School/Work Excuse
[2018-08-12 12:08] LABS: BASO % 0.6 % (0.0-2.0); EOS # 0.2 K/uL (0.0-0.7); EOS % 3.9 % (0.0-4.0); HEMOGLOBIN 11.5 g/dL (12.0-16.0); LYMPH # 2.2 K/uL (1.0-4.3); LYMPH % 43.9 % (20.0-40.0); MEAN CELL VOLUME 77.4 fl (81.0-99.0); MEAN CORPUSCULAR HEMOGLOBIN 25.2 pg (27.0-31.0); MEAN CORPUSCULAR HGB CONC 32.6 g/dL (33.0-37.0); MEAN PLATELET VOLUME 8.4 fl (7.2-11.7); MONO # 0.4 K/uL (0.0-0.8); MONO % 8.7 % (0.0-10.0); NEUT # 2.1 K/uL (1.8-7.0); NEUT % 42.9 % (50.0-75.0); NRBC % 0.1 % (0.0-0.0); RBC 4.55 Mil/uL (3.80-5.20); RED CELL DISTRIBUTION WIDTH 13.9 % (11.5-14.5)
[2018-08-12 12:59] LABS: ALBUMIN 3.8 g/dL (3.5-5.0); ALT/SGPT 14 U/L (9-52); AST/SGOT 25 U/L (14-36); BLOOD UREA NITROGEN 10 mg/dl (7-17); CALCIUM 9.3 mg/dL (8.4-10.2); GFR NON-AFRICAN AMERICAN > 60; LIPASE 121 U/L (23-300)
[2018-08-12] MEDS ORDERED: Iohexol 300 100 ML IJ ONE (14:23)
[2018-08-12] MEDS ORDERED: Sodium Chloride 0.9% 50 ML IV ONE (14:23)
[2018-08-12 16:18] VITALS: BP 117/70; PULSE 68; TEMP 97.7
--- NOTE | 2018-08-12 16:21 | CT ---
Date of service: 08/12/2018 PROCEDURE: CT Abdomen and Pelvis with contrast HISTORY: abd pain COMPARISON: None. TECHNIQUE: Following oral and intravenous contrast administration, a CT examination of the abdomen and pelvis was performed from the domes of the diaphragms to the symphysis pubis with reformatted datasets provided not only axial but also sagittal and coronal series. Contrast dose: Omnipaque 300, 95 cc Radiation dose: Total exam DLP = 895.4 mGy-cm. This CT exam was performed using one or more of the following dose reduction techniques: Automated exposure control, adjustment of the mA and/or kV according to patient size, and/or use of iterative reconstruction technique. FINDINGS: LOWER THORAX: Unremarkable. LIVER: Diminished attenuation throughout the liver is identified without intrahepatic biliary dilatation or mass. GALLBLADDER AND BILE DUCTS: Unremarkable. PANCREAS: Unremarkable. No gross lesion or ductal dilatation. SPLEEN: Spleen is upper limits normal size at 12.9 cm without focal mass evident. ADRENALS: Unremarkable. No mass. KIDNEYS AND URETERS: Unremarkable. No hydronephrosis. No solid mass. VASCULATURE: Unremarkable. No aortic aneurysm. No aortic atherosclerotic calcification or mural plaque present. BOWEL: Prior small bowel intussusception is appear to have reduced with no recurrence at this moment. Large-bowel is remarkable for limited residual retained fecal material intermixed with oral contrast in various segments. No obstruction. No gross mural thickening. APPENDIX: Prior appendectomy evident. PERITONEUM: Tiny umbilical hernia is again noted containing only fat. No free fluid. No free air. LYMPH NODES: Unremarkable. No enlarged lymph nodes. BLADDER: Unremarkable. REPRODUCTIVE: Prior IUD now no longer visualized. BONES: No acute fracture. OTHER FINDINGS: None. IMPRESSION: 1. Hepatic steatosis identified. 2. Multiple prior small bowel intussusceptions have resolved at the left clementina abdomen with no recurrence appreciable at this time. No bowel obstruction, mesenteric edema, ascites or free intra peritoneal gas collection identified. 3. Upper limits normal size spleen, nonfocal. 4. Prior appendectomy again evident. 5. Status post removal of apparent prior IUD.
== END 2018-08-12 17:54 | disposition home or self-care (01) ==
LOC: SUPCPDRO 10:29 → H.ER 10:29
DX: R10.9 Unspecified abdominal pain (principal); K42.9 Umbilical hernia without obstruction or gangrene; Z90.49 Acquired absence of other specified parts of digestive tract
CPT/HCPCS: 74177; 80053; 81025; 83690; 85025; 96374; 96375; 99285; J1885; J7030; Q9966; Q9967